=== PATIENT | female | born 1995 ===

== ENCOUNTER 2018-11-19 20:37 | Emergency (ER) | payer MEDICAID ==
[2018-11-19] MEDS ORDERED: Sodium Chloride 0.9% 2.5 ML Syringe FLUSH PRN (21:17)
[2018-11-19] MEDS ORDERED: Ondansetron 4 MG/2 ML SDV IVPUSH ONE (21:17)
[2018-11-19] MEDS ORDERED: Sodium Chloride 0.9% 1,000 ML IV ONE ×2 (21:17→23:08)
[2018-11-19] MEDS ORDERED: Sodium Chloride 0.9% 10 ML Syringe FLUSH PRN (21:17)
--- NOTE | 2018-11-19 21:26 | EDM.PDOC ---
ED HPI GENERAL MEDICAL PROBLEM - General Chief Complaint: General Stated Complaint: HEADACHE Time Seen by Provider: 11/19/18 21:04 - History of Present Illness INITIAL COMMENTS - FREE TEXT/NARRATIVE: HISTORY AND PHYSICAL: History of present illness: The patient is a 23-year-old female who is 35 weeks and is following with [facility] and is presenting with a left-sided headache that started today. 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 The patient has transferred her infectious disease and neurosurgery care to [facility] and is following with a physician there and she is on prophylactic Keflex. The patient says that since her surgery in May she has had headaches that are more diffuse and frontal in location and she normally takes Tylenol and it alleviates her headaches. She said that today her headache started more on the left side and it seemed to be different in character and location and she was noticing some ringing in her ears tingling to her extremities and a weird smell that she is sensing and she is concerned about recurrence of her actions. She's had no fevers or chills no neck pain or stiffness no back pain no chest pain or upper respiratory symptoms but she has had nausea without vomiting. She says that from a standpoint she is not having any abdominal pain or cramping no vaginal bleeding and no urinary symptoms. She says that the baby has not been moving as much as usual. She tells us that she did contact her ID MD , Dr Fitzgerald, and that physician requested that she come here to the ED. The patient says that she is mostly been following with infectious disease and that the neurosurgeon wants her to continue with that provider in till her care is complete and she is cleared and then neurosurgery would reassume care. Review of systems: As per history of present illness and below otherwise all systems reviewed and negative. Past medical history: As per history of present illness and as reviewed below otherwise noncontributory. Surgical history: As per history of present illness and as reviewed below otherwise noncontributory. Social history: No reported history of drug or alcohol abuse. Family history: As per history of present illness and as reviewed below otherwise noncontributory. Physical exam: General: Well-developed well-nourished nontoxic female who ambulated into the ED without distress and vital signs are noted by me. She moves easily without issue and is interactive and cooperative on exam HEENT: Atraumatic, normocephalic, pupils reactive, negative for conjunctival pallor or scleral icterus, mucous membranes moist, throat clear, neck supple, nontender, trachea midline. There is a well-healed scar at the left temporoparietal area without tenderness defects or fluctuance and I cannot reproduce pain when I palpate the left side of her head. There is no erythema there or new soft tissue skin breakage and there is no swelling appreciated. Air is no specific tenderness when I palpate the old scar. There is no cervical adenopathy or nuchal rigidity. TMs are normal bilaterally Lungs: Clear to auscultation, breath sounds equal bilaterally, chest nontender. Heart: S1S2, regular, rate and rhythm no overt murmurs Abdomen: Soft, gravid nontender bowel sounds are hypoactive Negative for costovertebral tenderness. Pelvis: Stable nontender. Genitourinary: Deferred. Rectal: Deferred. Extremities: Atraumatic, negative for cords or calf pain. Neurovascular unremarkable. No pedal edema Neuro: Awake, alert, oriented. Cranial nerves II through XII unremarkable. Cerebellum unremarkable. Motor and sensory unremarkable throughout. Exam nonfocal. Diagnostics: CT scan of the head CBC CMP INR lactic acid UA with reflex, urine culture sedimentation rate L&D to monitor and evaluate the baby with NST Therapeutics: IV fluids Zofran Patient took Tylenol prior to coming here at approximately 3 PM Frankford 2135: This was discussed with Dr. Merino as far as pain management and she said that Toradol would not be indicated due to the third trimester state and Frankford would be acceptable. I discussed this with the patient and she is agreeable with taking a Frankford as her last Tylenol dose was over 6 hours ago. 2153: NST has been performed by labor and delivery and is reactive and they will connect with OB Dr Merino. 2304: This case was discussed with the infectious disease doctor at [place] [facility], Dr. White, was account classification clerk for this patient's primary ID doctor Dr. Zhao. He says that he is not concerned from anything that I have told him and would treat her headache symptomatically. The patient's saying to me that her headache is now at 2/10 after the Frankford. She is currently receiving IV fluids for the ketones in her urine. She has asked me what her sedimentation rate was and that was not initially ordered nor did the covering doctor Dr. White ask for that value. The patient is concerned because her physician does follow that and she would like it to be added on which I will do. She says her last number was 34. I will perform this lab tests and if it is more elevated than her usual number I will recontact Dr. White. Both the patient and at bedside as well as the provider in [facility] are aware that we cannot perform an MRI here. The provider at [facility] is aware that she is on Keflex 500 3 times a day. A urine culture has been ordered as there are some white cells and few bacteria in the urine sample. There is epithelial cells in the sample so this may just be contaminant so I will not add a second antibiotic specifically for the urine until the culture result has been obtained as the patient is on Keflex The patient's sedimentation rate tonight is 34 and she says that is consistent with her last sedimentation rate and she is not concerned. I have again strictly advised her that if there is any change in her clinical condition she will likely need an MRI which we cannot perform here and she is welcome to return here but she would likely need to go where MRI capability is available. I also told her that Dr. Myers that he will be available for phone conversation and consultation and she needs Impression: Headache, history of craniotomy in May for infection Third trimester , 35 weeks, stable Definitive disposition and diagnosis as appropriate pending reevaluation and review of above. 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 ED EXAM, GENERAL - Physical Exam Exam: See Below (See dictation) Course - Vital Signs Last Recorded V/S: Last Vital Signs Temp 36.2 C 11/19/18 21:06 Pulse 84 11/19/18 23:00 Resp 18 11/19/18 23:00 BP 102/53 L 11/19/18 23:00 Pulse Ox 97 11/19/18 23:00 - Orders/Labs/Meds Orders: Active Orders 24 hr Category Date Time Status NST [ Non Stress Test] [RC] PER UNIT ROUTINE Care 11/19/18 21:26 Active CULTURE URINE [RM] Stat Lab 11/19/18 21:24 Received Sodium Chloride 0.9% [Normal Saline] 1,000 ml Med 11/19/18 23:08 Active IV .Bolus Sodium Chloride 0.9% [Saline Flush] Med 11/19/18 21:17 Active 10 ml FLUSH ASDIRECTED PRN Sodium Chloride 0.9% [Saline Flush] Med 11/19/18 21:17 Active 2.5 ml FLUSH ASDIRECTED PRN Saline Lock Insert [OM.PC] Stat Oth 11/19/18 21:16 Ordered Medication Orders Sodium Chloride (Normal Saline) 1,000 mls @ 999 mls/hr IV .Bolus ONE Stop: 11/20/18 00:08 Last Admin: 11/19/18 23:10 Dose: 999 mls/hr Sodium Chloride (Saline Flush) 10 ml FLUSH ASDIRECTED PRN PRN Reason: Keep Vein Open Sodium Chloride (Saline Flush) 2.5 ml FLUSH ASDIRECTED PRN PRN Reason: Keep Vein Open Labs: Laboratory Tests 11/19/18 11/19/18 11/19/18 Range/Units 21:20 21:20 21:20 WBC 12.69 H (4.0-11.0) K/uL RBC 4.61 (4.30-5.90) M/uL Hgb 12.5 (12.0-16.0) g/dL Hct 36.6 (36.0-46.0) % MCV 79.4 L (80.0-98.0) fL MCH 27.1 (27.0-32.0) pg MCHC 34.2 (31.0-37.0) g/dL RDW Std Deviation 40.4 (28.0-62.0) fl RDW Coeff of Blue 14 (11.0-15.0) % Plt Count 257 (150-400) K/uL MPV 9.60 (7.40-12.00) fL Neut % (Auto) 79.5 (48.0-80.0) % Lymph % (Auto) 14.9 L (16.0-40.0) % Kimball % (Auto) 5.2 (0.0-15.0) % Eos % (Auto) 0.2 (0.0-7.0) % Baso % (Auto) 0.2 (0.0-1.5) % Neut # (Auto) 10.1 H (1.4-5.7) K/uL Lymph # (Auto) 1.9 (0.6-2.4) K/uL Kimball # (Auto) 0.7 (0.0-0.8) K/uL Eos # (Auto) 0.0 (0.0-0.7) K/uL Baso # (Auto) 0.0 (0.0-0.1) K/uL Nucleated RBC % 0.0 /100WBC Nucleated RBCs # 0 K/uL ESR (0-19) mm/hr INR 0.92 Lactate (0.20-2.00) mmol/L Sodium 137 (136-145) mmol/L Potassium 3.7 (3.5-5.1) mmol/L Chloride 105 (98-107) mmol/L Carbon Dioxide 18.0 L (21.0-32.0) mmol/L BUN 10 (7.0-18.0) mg/dL Creatinine 0.9 (0.6-1.0) mg/dL Est Cr Clr Drug Dosing 79.04 mL/min Estimated GFR (MDRD) > 60.0 ml/min Glucose 91 (74-106) mg/dL Calcium 9.1 (8.5-10.1) mg/dL Total Bilirubin 0.8 (0.2-1.0) mg/dL AST 11 L (15-37) IU/L ALT 20 (14-63) IU/L Alkaline Phosphatase 130 H (46-116) U/L Total Protein 6.6 (6.4-8.2) g/dL Albumin 2.7 L (3.4-5.0) g/dL Globulin 3.9 (2.6-4.0) g/dL Albumin/Globulin Ratio 0.7 L (0.9-1.6) Urine Color Urine Appearance Urine pH (5.0-8.0) Ur Specific [place] (1.001-1.035) Urine Protein (NEGATIVE) mg/dL Urine Glucose (UA) (NEGATIVE) mg/dL Urine Ketones (NEGATIVE) mg/dL Urine Occult Blood (NEGATIVE) Urine Nitrite (NEGATIVE) Urine Bilirubin (NEGATIVE) Urine Urobilinogen (<2.0) EU/dL Ur Leukocyte Esterase (NEGATIVE) Urine RBC (0-2/HPF) Urine WBC (0-5/HPF) Ur Epithelial Cells (NONE-FEW) Urine Bacteria (NEGATIVE) 11/19/18 11/19/18 11/19/18 Range/Units 21:20 21:20 21:24 WBC (4.0-11.0) K/uL RBC (4.30-5.90) M/uL Hgb (12.0-16.0) g/dL Hct (36.0-46.0) % MCV (80.0-98.0) fL MCH (27.0-32.0) pg MCHC (31.0-37.0) g/dL RDW Std Deviation (28.0-62.0) fl RDW Coeff of Blue (11.0-15.0) % Plt Count (150-400) K/uL MPV (7.40-12.00) fL Neut % (Auto) (48.0-80.0) % Lymph % (Auto) (16.0-40.0) % Kimball % (Auto) (0.0-15.0) % Eos % (Auto) (0.0-7.0) % Baso % (Auto) (0.0-1.5) % Neut # (Auto) (1.4-5.7) K/uL Lymph # (Auto) (0.6-2.4) K/uL Kimball # (Auto) (0.0-0.8) K/uL Eos # (Auto) (0.0-0.7) K/uL Baso # (Auto) (0.0-0.1) K/uL Nucleated RBC % /100WBC Nucleated RBCs # K/uL ESR 34 H (0-19) mm/hr INR Lactate 0.8 (0.20-2.00) mmol/L Sodium (136-145) mmol/L Potassium (3.5-5.1) mmol/L Chloride (98-107) mmol/L Carbon Dioxide (21.0-32.0) mmol/L BUN (7.0-18.0) mg/dL Creatinine (0.6-1.0) mg/dL Est Cr Clr Drug Dosing mL/min Estimated GFR (MDRD) ml/min Glucose (74-106) mg/dL Calcium (8.5-10.1) mg/dL Total Bilirubin (0.2-1.0) mg/dL AST (15-37) IU/L ALT (14-63) IU/L Alkaline Phosphatase (46-116) U/L Total Protein (6.4-8.2) g/dL Albumin (3.4-5.0) g/dL Globulin (2.6-4.0) g/dL Albumin/Globulin Ratio (0.9-1.6) Urine Color YELLOW Urine Appearance SLT CLOUDY Urine pH 6.0 (5.0-8.0) Ur Specific [place] 1.025 (1.001-1.035) Urine Protein NEGATIVE (NEGATIVE) mg/dL Urine Glucose (UA) NEGATIVE (NEGATIVE) mg/dL Urine Ketones >=80 (NEGATIVE) mg/dL Urine Occult Blood NEGATIVE (NEGATIVE) Urine Nitrite NEGATIVE (NEGATIVE) Urine Bilirubin NEGATIVE (NEGATIVE) Urine Urobilinogen 0.2 (<2.0) EU/dL Ur Leukocyte Esterase SMALL H (NEGATIVE) Urine RBC 1-2 (0-2/HPF) Urine WBC 4-6 (0-5/HPF) Ur Epithelial Cells MODERATE (NONE-FEW) Urine Bacteria FEW (NEGATIVE) Meds: Medications Generic Name Dose Route Start Last Admin Trade Name Freq PRN Reason Stop Dose Admin Sodium Chloride 1,000 mls @ 999 mls/hr 11/19/18 23:08 11/19/18 23:10 Normal Saline IV 11/20/18 00:08 999 mls/hr .Bolus ONE Administration Sodium Chloride 10 ml 11/19/18 21:17 Saline Flush FLUSH ASDIRECTED PRN Keep Vein Open Sodium Chloride 2.5 ml 11/19/18 21:17 Saline Flush FLUSH ASDIRECTED PRN Keep Vein Open Discontinued Medications Generic Name Dose Route Start Last Admin Trade Name Fredorothy PRN Reason Stop Dose Admin Hydrocodone Bitart/Acetaminophen 1 tab 11/19/18 21:41 11/19/18 21:46 Frankford 325-5 Mg PO 11/19/18 21:42 1 tab ONETIME ONE Administration Sodium Chloride 1,000 mls @ 999 mls/hr 11/19/18 21:17 11/19/18 21:33 Normal Saline IV 11/19/18 22:17 999 mls/hr STAT ONE Administration Ondansetron HCl 4 mg 11/19/18 21:17 11/19/18 21:33 Zofran IVPUSH 11/19/18 21:18 4 mg ONETIME ONE Administration Pantoprazole Sodium 80 mg 11/19/18 23:55 Protonix Iv IVPUSH 11/19/18 23:56 .BOLUS ONE Departure - Departure Time of Disposition: 00:01 Disposition: Home, Self-Care 01 Condition: Good Clinical Impression: Headache Qualifiers: Headache type: unspecified Headache chronicity pattern: unspecified pattern Intractability: not intractable Qualified Code(s): R51 - Headache - Discharge Information Referrals: Corey Chavez MD [Primary Care Provider] - Forms: ED Department Discharge Additional Instructions: The following information is given to patients seen in the emergency department who are being discharged to home. This information is to outline your options for follow-up care. We provide all patients seen in our emergency department with a follow-up referral. The need for follow-up, as well as the timing and circumstances, are variable depending upon the specifics of your emergency department visit. If you don't have a primary care physician on staff, we will provide you with a referral. We always advise you to contact your personal physician following an emergency department visit to inform them of the circumstance of the visit and for follow-up with them and/or the need for any referrals to a consulting specialist. The emergency department will also refer you to a specialist when appropriate. This referral assures that you have the opportunity for followup care with a specialist. All of these measure are taken in an effort to provide you with optimal care, which includes your followup. Under all circumstances we always encourage you to contact your private physician who remains a resource for coordinating your care. When calling for followup care, please make the office aware that this follow-up is from your recent emergency room visit. If for any reason you are refused follow-up, please contact the [facility] emergency department at and ask to speak to the emergency department charge nurse. [facility] Primary care- Internal Medicine and Family [facility] [address] [place] [id number] [facility] [address] [place] [id number] Push hydration and continue to eat multiple small meals to keep her nutrition up. Please use [id number] Tylenol for pain management or the Frankford you have been prescribed as needed. Only take the Frankford when you're at home. These connect with your provider in [facility] if your symptoms evolve or change for further care management and return to ER as needed and as discussed. Continue with your care at [facility] - My Orders Last 24 Hours: My Active Orders 11/19/18 21:16 Saline Lock Insert [OM.PC] Stat 11/19/18 21:17 Sodium Chloride 0.9% [Saline Flush] 10 ml FLUSH ASDIRECTED PRN Sodium Chloride 0.9% [Saline Flush] 2.5 ml FLUSH ASDIRECTED PRN 11/19/18 21:24 CULTURE URINE [RM] Stat 11/19/18 21:26 NST [ Non Stress Test] [RC] PER UNIT ROUTINE 11/19/18 23:08 Sodium Chloride 0.9% [Normal Saline] 1,000 ml IV .Bolus - Assessment/Plan Last 24 Hours: My Active Orders 11/19/18 21:16 Saline Lock Insert [OM.PC] Stat 11/19/18 21:17 Sodium Chloride 0.9% [Saline Flush] 10 ml FLUSH ASDIRECTED PRN Sodium Chloride 0.9% [Saline Flush] 2.5 ml FLUSH ASDIRECTED PRN 11/19/18 21:24 CULTURE URINE [RM] Stat 11/19/18 21:26 NST [ Non Stress Test] [RC] PER UNIT ROUTINE 11/19/18 23:08 Sodium Chloride 0.9% [Normal Saline] 1,000 ml IV .Bolus
[2018-11-19] MEDS ORDERED: Acetaminophen/HYDROcodone 325-5 MG Tab PO ONE (21:41)
[2018-11-19 21:58] LABS: BLOOD UREA NITROGEN,BUN 10 mg/dL (7.0-18.0); CHLORIDE,CL 105 mmol/L (98-107); GLUCOSE RANDOM 91 mg/dL (74-106); POTASSIUM,K 3.7 mmol/L (3.5-5.1); SODIUM,NA 137 mmol/L (136-145)
--- NOTE | 2018-11-19 22:56 | CT ---
CT HEAD DATE: 11/19/2018 CLINICAL HISTORY: Patient with recent cerebral infection, status post surgical drainage, now with worsening symptoms. TECHNIQUE: Standard CT scanning of the head was performed. COMPARISON: None. FINDINGS: There is a left temporal amanda hole. There is non-specific subgaleal soft tissue thickening in the left temporal region. There is a small area of encephalomalacia in the left temporal lobe, consistent with sequelae of the prior infection. There is no intracranial hemorrhage. There is no territorial infarction. The size of the ventricular system is normal for age. There is no mass effect or midline shift. The orbits are unremarkable. The paranasal sinuses are unremarkable. The mastoid air cells are unremarkable. IMPRESSION: 1. Left temporal amanda hole with associated non-specific subgaleal soft tissue thickening in the left temporal region. These findings likely represent expected post-operative changes, although clinical correlation for scalp cellulitis is recommended. 2. Small area of encephalomalacia in the left temporal lobe is consistent with sequelae of the prior infection. No specific CT evidence of recurrent infection. However, an MRI examination of the brain with and without contrast would be more sensitive and specific. 3. No intracranial hemorrhage or territorial infarction. Please note that all CT scans at this facility use dose modulation, iterative reconstruction, and/or weight-based dosing when appropriate to reduce radiation dose to as low as reasonably achievable. Dictated by: Suly Mccormack MD @ 11/19/2018 22:55:19 (Electronically Signed)
[2018-11-19] MEDS ORDERED: Sodium Chloride 0.9% 250 ML IV SCH (23:15)
[2018-11-19] MEDS ORDERED: Pantoprazole 40 MG Vial IVPUSH ONE (23:55)
[2018-11-20] MEDS ORDERED: Sodium Chloride 0.9% 20 ML ONE (00:13)
[2018-11-20] MEDS ORDERED: Sodium Chloride 0.9% 20 ML SDV FLUSH ONE (00:16)
== END 2018-11-20 00:26 | disposition home or self-care (01) ==
LOC: MW.ED 20:37
DX: O99.89 Other specified diseases and conditions complicating pregnancy, childbirth and the puerperium (principal); R51 Headache; Z3A.35 35 weeks gestation of pregnancy
CPT/HCPCS: 36415; 70450; 80053; 81001; 83605; 85025; 85610; 85652; 87086; 96361; 96374; 96375; 99284; A9270; C9113; J2405; J7040

== ENCOUNTER 2018-12-14 05:20 | Inpatient (IN) | payer MEDICAID ==
[2018-12-14] MEDS ORDERED: Sodium Chloride 0.9% 2.5 ML Syringe FLUSH PRN (05:31)
[2018-12-14] MEDS ORDERED: Citric Acid/Sodium Citrate Solution 30 ML Cup PO ONE (05:31)
[2018-12-14] MEDS ORDERED: Sodium Chloride 0.9% 10 ML Syringe FLUSH PRN (05:31)
[2018-12-14] MEDS ORDERED: Sodium Chloride 0.9% 10 ML SDV IV PRN (05:31)
[2018-12-14] MEDS ORDERED: Oxytocin/0.9 % Sodium Chloride 30 UNIT/500 ML BAG IV SCH (05:45)
[2018-12-14] MEDS: Lactated Ringers 1,000 ML IV SCH ×4 (05:56→17:58)
[2018-12-14] MEDS ORDERED: ceFAZolin 2 GM in Premix Bag 1 BAG IV ONE (07:30)
[2018-12-14] MEDS ORDERED: Morphine PF 10 MG/10 ML SDV ONE (07:32)
[2018-12-14] MEDS ORDERED: Ondansetron 4 MG/2 ML SDV ONE (07:32)
[2018-12-14] MEDS ORDERED: Oxytocin 10 Units/1 ML SDV ONE (07:40)
[2018-12-14] MEDS ORDERED: Octyl 2-Cyanoacrylate 1 Tube ONE (07:43)
[2018-12-14] MEDS ORDERED: fentaNYL 100 MCG/2 ML SDV IVPUSH PRN (07:47)
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
[2018-12-14] MEDS ORDERED: Nalbuphine 10 MG/1 ML Vial IVPUSH PRN (07:48)
[2018-12-14] MEDS ORDERED: Acetaminophen/oxyCODONE 325-5 MG Tab PO PRN (07:48)
[2018-12-14] MEDS: Ondansetron 4 MG/2 ML SDV IVPUSH PRN ×3 (08:00→20:51)
[2018-12-14] MEDS ORDERED: diphenhydrAMINE 50 MG/ML SDV ONE (08:37)
[2018-12-14] MEDS ORDERED: Dexamethasone 4 MG/ML 5 ML MDV ONE (08:37)
[2018-12-14] MEDS ORDERED: Phenylephrine 1% 10 MG/ML SDV ONE (08:37)
[2018-12-14] MEDS ORDERED: Lanolin 100% Cream 7 GM Tube TOP PRN (08:56)
[2018-12-14] MEDS ORDERED: Aluminum Hydroxide/Magnesium Hydroxide/Simethicone Susp 30 ML Cup PO PRN (08:56)
[2018-12-14] MEDS ORDERED: diphenhydrAMINE 50 MG/ML SDV IVPUSH PRN (08:56)
[2018-12-14] MEDS ORDERED: Bisacodyl 10 MG Supp RECTAL PRN (08:56)
--- NOTE | 2018-12-14 09:09 | PCM.OPNOTE ---
- General Post-Op/Procedure Note Date of Surgery/Procedure: 12/14/18 Operative Procedure(s): Repeat LTCS Findings: Viable female APGARs 9, 9 weight 3070 gm. Intact placenta with 3V cord Pre Op Diagnosis: 39 week IUP. Previous c section, desired repeat Post-Op Diagnosis: Same Anesthesia Technique: Spinal Primary Surgeon: Patt Ruff Fluid Replacement, Intraop: 1,600 EBL in mLs: 500 Complications: none known Condition: Stable Free Text/Narrative:: Dictation [id number]
[2018-12-14] MEDS: Ketorolac 30 MG/ML SDV IVPUSH SCH ×3 (09:25→20:43)
--- NOTE | 2018-12-14 11:28 | OR ---
SURGEON: Patt Ruff M.D. DATE OF PROCEDURE: 12/14/2018 PREOPERATIVE DIAGNOSES: 1. 39 weeks' intrauterine . 2. Previous section, desires repeat. POSTOPERATIVE DIAGNOSES: 1. 39 weeks' intrauterine . 2. Previous section, desires repeat. PROCEDURE: Repeat low-transverse section. PRIMARY SURGEON: Patt Ruff MD. ANESTHESIA: Spinal. QUALITY CONTROL MICROBIOLOGIST: Romeo Duran. ESTIMATED BLOOD LOSS: 500 mL. FLUIDS: 1600 mL of crystalloid. COMPLICATIONS: None known. FINDINGS: Viable female. scores 9 at one minute and 9 at five minutes. Weight of 3070 g. Delivery, intact placenta and three-vessel cord. DISPOSITION: The patient to PACU, infant to nursery, stable. PROCEDURE DETAILS: Megha is a 23-year-old G2, P0, at 39 weeks' gestational age, who presents today for scheduled repeat delivery. 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 She underwent craniotomy with drainage and has been seeing Infectious Disease and Neurosurgery during the entire course of her . She has remained on initially PICC line antibiotics followed by oral antibiotics. She has remained stable on her imaging studies, has progressively improved. Anesthesia has been in contact with Neurosurgery, and they feel that at this juncture that she is reasonable candidate for a regional anesthesia. Risks of delivery have been discussed with her. Proper consent obtained. The patient was taken to the operating room where she underwent spinal anesthetic, was placed in dorsal supine position with leftward tilt. SCDs to lower extremities. Basurto to gravity, was prepped and draped in the usual sterile fashion. A time-out was performed. She received Ancef 2 g prophylactically. Anesthesia was tested and found to be adequate after the patient was prepped and draped in the usual sterile fashion. Previous Pfannenstiel scar was now excised. Subcutaneous tissue was incised down to the level of the rectus fascia, which was incised in midline, lateralized on either side sharply and bluntly. Superior aspect of fascia was dissected upward, dissected both sharply and bluntly from underlying muscle. Similar aspect was performed with the inferior aspect of the fascia. Rectus muscle in midline, entered sharply, and the peritoneum was also entered sharply. Rectus muscle and peritoneum were now lateralized bluntly. Uterine position and position palpated. Self-retaining retractor was gently placed. A uterovesical reflection was visualized. Bladder flap was created sharply and bluntly. Bladder was mobilized away from the lower uterine segment. Low transverse hysterotomy was now performed. Uterine cavity was entered with blunt-ended scalpel. Hysterotomy was lateralized bluntly. Amniotomy was performed. Clear fluid was returned. The infant's head was flexed. The infant's head was delivered with fundal pressure being applied, followed by anterior shoulder and posterior shoulder and remaining body without difficulty. The infant's oropharynx and nares were bulb suctioned. The infant was vigorous and crying. After a delay, cord was clamped x2 and cut. was handed off to attending nursing staff. Cord arterial, cord venous, and cord blood sampling was obtained. The placenta was now delivered. Uterine cavity was cleared of all clot and debris. The hysterotomy was repaired using 0 Vicryl in continuous running locked fashion followed by a re-imbricating layer. Area of oozing in the left lateral side was replicated with [id number] suture. Hemostasis thereafter evident. Posterior aspect of the uterus inspected, no defects or hematomas found be forming. Region was well irrigated, suction dried. Uterus returned to the abdominal cavity. Colonic gutters were cleared of all clot and debris, well irrigated and suction dried. Hysterotomy once again inspected and found to be hemostatic other than a few areas of serosal oozing which were cauterized. Self-retaining retractor now gently placed. Bladder blade was placed. Hysterotomy once again inspected and found to be hemostatic. Rectus muscle and peritoneum were now reapproximated using 0 Vicryl with inverted mattress suture technique. Anterior aspect of the muscle and posterior aspect of the fascia were closely inspected, any areas of oozing were cauterized. Rectus fascia was reapproximated using 0 Vicryl, beginning laterally on each side and meeting in the midline in continuous running fashion with 0 Vicryl. Subcutaneous tissue was now copiously irrigated, any areas of oozing were cauterized. Skin edges were now reapproximated using 3-0 Vicryl on a Juan R needle in subcuticular fashion followed by half-inch Steri-Strips and Mastisol. Uterus remained firm. Fundal pressure was applied. Hemostasis appeared evident. Sponge, instrument, and needle count was correct x2. The patient tolerated the procedure well overall. She will go to PACU in stable condition, infant to nursery. We will continue IV prophylactic antibiotics for 24 hours. SILVINO NYE /[id number]
[2018-12-14] MEDS: Simethicone 80 MG Tab.Chew PO SCH ×3 (12:00→23:47)
[2018-12-14] MEDS: Docusate Sodium 100 MG Cap PO SCH ×2 (12:25→20:47)
--- NOTE | 2018-12-14 12:41 | PCM.POSTAN ---
POST ANESTHESIA ASSESSMENT - MENTAL STATUS Mental Status: Alert, Oriented - VITAL SIGNS Vital Signs: Last Vital Signs Temp 98.0 F 12/14/18 11:45 Pulse 74 12/14/18 11:45 Resp 14 12/14/18 11:45 BP 100/50 L 12/14/18 11:45 Pulse Ox 96 12/14/18 09:44 - RESPIRATORY Respiratory Status: Respiratory Rate WNL, Airway Patent, O2 Saturation Stable - CARDIOVASCULAR CV Status: Pulse Rate WNL, Blood Pressure Stable - GASTROINTESTINAL GI Status: No Symptoms - POST OP HYDRATION Hydration Status: Adequate & Stable
[2018-12-14] MEDS: ceFAZolin 1 GM in Premix Bag 1 BAG IV SCH ×2 (15:45→23:42)
[2018-12-15] MEDS: Ketorolac 30 MG/ML SDV IVPUSH SCH ×2 (03:02→08:46)
[2018-12-15] MEDS: Simethicone 80 MG Tab.Chew PO SCH ×3 (05:59→20:01)
[2018-12-15] MEDS: ceFAZolin 1 GM in Premix Bag 1 BAG IV SCH (08:06)
--- NOTE | 2018-12-15 08:41 | PCM.PNPP ---
- General Info Date of Service: 12/15/18 Functional Status: Reports: Pain Controlled, Tolerating Diet, Ambulating, Urinating - Review of Systems General: Reports: Fatigue. Denies: Fever, Weakness Pulmonary: Denies: Shortness of Breath Cardiovascular: Denies: Chest Pain, Palpitations, Lightheadedness Gastrointestinal: Denies: Abdominal Pain, Nausea, Vomiting Genitourinary: Denies: Flank Pain Musculoskeletal: Reports: No Symptoms Skin: Reports: No Symptoms Neurological: Denies: Confusion, Dizziness, Headache Psychiatric: Reports: No Symptoms - General Info Date of Service: 12/15/18 - Patient Data Vital Signs - Most Recent: Last Vital Signs Temp 36.4 C 12/15/18 04:13 Pulse 84 12/15/18 04:13 Resp 16 12/15/18 07:00 BP 112/58 L 12/15/18 04:13 Pulse Ox 96 12/15/18 07:00 Weight - Most Recent: 109.044 kg I&O - Last 24 Hours: Intake & Output 12/14/18 12/15/18 12/15/18 22:59 06:59 14:59 Intake Total 730 1050 Output Total 400 1700 Balance 330 -650 Lab Results - Last 24 Hours: Laboratory Results - last 24 hr 12/14/18 12/15/18 Range/Units 08:18 05:36 WBC 11.10 H (4.0-11.0) K/uL RBC 3.44 L (4.30-5.90) M/uL Hgb 9.1 L (12.0-16.0) g/dL Hct 27.6 L (36.0-46.0) % MCV 80.2 (80.0-98.0) fL MCH 26.5 L (27.0-32.0) pg MCHC 33.0 (31.0-37.0) g/dL RDW Std Deviation 43.1 (28.0-62.0) fl RDW Coeff of Blue 15 (11.0-15.0) % Plt Count 228 (150-400) K/uL MPV 9.50 (7.40-12.00) fL Nucleated RBC % 0.0 /100WBC Nucleated RBCs # 0 K/uL Cord ABG pH 7.312 (7.18-7.38) Cord ABG Base Excess -5 (-10--2) Cord VBG pH 7.302 (7.25-7.45) Cord VBG Base Excess -5 (-10--2) Med Orders - Current: Current Medications Al Hydroxide/Mg Hydroxide (Mag-Al Plus) 30 ml PO Q8H PRN PRN Reason: Heartburn Bisacodyl (Dulcolax) 10 mg RECTAL ONETIME PRN PRN Reason: Constipation Diphenhydramine HCl (Benadryl) 25 mg IVPUSH Q6H PRN PRN Reason: Itching or Nausea Last Admin: 12/14/18 22:40 Dose: 25 mg Docusate Sodium (Colace) 100 mg PO BID [facility] Last Admin: 12/14/18 20:47 Dose: 100 mg Emollient Ointment (Lansinoh Hpa) 0 gm TOP ASDIRECTED PRN PRN Reason: Sore Nipples Lactated Ringer's (Ringers, Lactated) 1,000 mls @ 500 mls/hr IV BOLUS [facility] Last Admin: 12/14/18 07:16 Dose: 500 mls/hr Oxytocin/Sodium Chloride (Oxytocin 30 Unit/500 Ml-Ns) 30 unit in 500 mls @ 250 mls/hr IV TITRATE [facility] Lactated Ringer's (Ringers, Lactated) 1,000 mls @ 125 mls/hr IV ASDIRECTED [facility] Last Admin: 12/14/18 17:58 Dose: 125 mls/hr Ibuprofen (Motrin) 800 mg PO Q8H PRN PRN Reason: mild pain or fever Ketorolac Tromethamine (Toradol) 30 mg IVPUSH Q6H [facility] Stop: 12/15/18 09:01 Last Admin: 12/15/18 03:02 Dose: 30 mg Ondansetron HCl (Zofran) 4 mg IVPUSH Q4H PRN PRN Reason: Nausea/Vomiting Last Admin: 12/14/18 20:51 Dose: 4 mg Oxycodone/Acetaminophen (Percocet 325-5 Mg) 1 tab PO ONETIME PRN PRN Reason: Pain (moderate 4-6) Oxycodone/Acetaminophen (Percocet 325-5 Mg) 1 tab PO Q4H PRN PRN Reason: Pain (moderate 4-6) Oxycodone/Acetaminophen (Percocet 325-5 Mg) 2 tab PO Q4H PRN PRN Reason: Pain (moderate 4-6) Simethicone (Simethicone) 160 mg PO QID [facility] Last Admin: 12/15/18 05:59 Dose: 160 mg Sodium Chloride (Saline Flush) 10 ml FLUSH ASDIRECTED PRN PRN Reason: Keep Vein Open Sodium Chloride (Saline Flush) 2.5 ml FLUSH ASDIRECTED PRN PRN Reason: Keep Vein Open Sodium Chloride (Normal Saline) 10 ml IV ASDIRECTED PRN PRN Reason: IV Use Discontinued Medications Citric Acid/Sodium Citrate (Bicitra Solution) 30 ml PO ONETIME ONE Stop: 12/14/18 05:32 Last Admin: 12/14/18 07:40 Dose: 30 ml Dexamethasone (Dexamethasone) Confirm Administered Dose 20 mg .ROUTE .STK-MED ONE Stop: 12/14/18 08:38 Diphenhydramine HCl (Benadryl) Confirm Administered Dose 50 mg .ROUTE .STK-MED ONE Stop: 12/14/18 08:38 Fentanyl (Sublimaze) 50 mcg IVPUSH Q5M PRN PRN Reason: Pain (severe 7-10) Stop: 12/15/18 07:48 Cefazolin Sodium/Dextrose 2 gm (/ Premix) 50 mls @ 100 mls/hr IV ONETIME ONE Stop: 12/14/18 07:59 Last Admin: 12/14/18 12:25 Dose: Not Given Cefazolin Sodium/Dextrose 1 gm (/ Premix) 50 mls @ 100 mls/hr IV Q8H [facility] Stop: 12/15/18 08:29 Last Admin: 12/15/18 08:06 Dose: 100 mls/hr Morphine Sulfate (Duramorph Pf) Confirm Administered Dose 10 mg .ROUTE .STK-MED ONE Stop: 12/14/18 07:33 Nalbuphine HCl (Nubain) 2.5 mg IVPUSH Q3H PRN PRN Reason: Pruritis Stop: 12/15/18 07:48 Last Admin: 12/14/18 10:32 Dose: 2.5 mg Octyl Cyanoacrylate (Dermabond Advance) Confirm Administered Dose 1 applic .ROUTE .STK-MED ONE Stop: 12/14/18 07:44 Last Admin: 12/14/18 12:25 Dose: Not Given Ondansetron HCl (Zofran) Confirm Administered Dose 4 mg .ROUTE .STK-MED ONE Stop: 12/14/18 07:33 Oxytocin (Pitocin) Confirm Administered Dose 30 unit .ROUTE .STK-MED ONE Stop: 12/14/18 07:41 Phenylephrine HCl (Ja-Synephrine) Confirm Administered Dose 20 mg .ROUTE .STK- MED ONE Stop: 12/14/18 08:38 - Infant Interaction Support Person: Mother - Recovery Exam Fundal Tone: Firm Fundal Level: At Umbilicus Fundal Placement: Midline Lochia Amount: Scant, Small Lochia Color: Rubra/Red Perineum Description: Intact, Minimal Bruising/Swelling Episiotomy/Laceration: Approximated Bladder Status: Indwelling Catheter in Place Urinary Elimination: Indwelling Catheter - Exam General: Alert, Oriented Lungs: Normal Respiratory Effort Cardiovascular: Regular Rate, Regular Rhythm GI/Abdominal Exam: Normal Bowel Sounds, Soft Extremities: Pedal Edema (1+). No: Ede's Sign Skin: Warm, Dry, Intact Wound/Incisions: Healing Well, No Drainage. No: Erythema Neurological: No New Focal Deficit Psy/Mental Status: Alert, Normal Affect, Normal Mood - Problem List & Annotations (1) Delivery by section SNOMED Code(s): 362925782 Code(s): UOU6582 - Status: Acute Current Visit: Yes - Problem List Review Problem List Initiated/Reviewed/Updated: Yes - My Orders Last 24 Hours: My Active Orders 12/14/18 08:56 Patient Status [ADT] Routine Ambulate [RC] PER UNIT ROUTINE Antiembolic Devices [RC] PER UNIT ROUTINE May Shower [RC] ASDIRECTED RT Incentive Spirometry [RC] Q2HWA Vital Signs [RC] PER UNIT ROUTINE Acetaminophen/oxyCODONE [Percocet 325-5 MG] 1 tab PO Q4H PRN Acetaminophen/oxyCODONE [Percocet 325-5 MG] 2 tab PO Q4H PRN Alum Hydrox/Mag Hydrox/Simeth [Mag-Al Plus] 30 ml PO Q8H PRN Bisacodyl [Dulcolax] 10 mg RECTAL ONETIME PRN Ibuprofen [Motrin] 800 mg PO Q8H PRN Lanolin [Lansinoh HPA] See Dose Instructions TOP ASDIRECTED PRN Ondansetron [Zofran] 4 mg IVPUSH Q4H PRN diphenhydrAMINE [Benadryl] 25 mg IVPUSH Q6H PRN Abdominal Binder [OM.PC] Routine Assess Lochia [WOMSER] Per Unit Routine Assess Uterine Involution [WOMSER] Per Unit Routine Breast Pump [WOMSER] Per Unit Routine Heat Therapy [OM.PC] Routine Ice Therapy [OM.PC] Routine Peripheral IV Discontinue [OM.PC] Routine Sequential Compression Device [OM.PC] Per Unit Routine 12/14/18 09:00 Docusate Sodium [Colace] 100 mg PO BID Ketorolac [Toradol] 30 mg IVPUSH Q6H Lactated Ringers [Ringers, Lactated] 1,000 ml IV ASDIRECTED 12/14/18 12:00 Simethicone 160 mg PO QID 12/14/18 Lunch Regular Diet [DIET] 12/16/18 07:00 Blood Glucose Check, Bedside [RC] ONETIME - Assessment Assessment:: POD 1 status post repeat LTCS - Plan Plan:: Cotinue postoperative cares, ambulate halls today, may shower. She is to transition back to her oral keflex today. Will evaluate fasting glucose in morning.
[2018-12-15] MEDS: Docusate Sodium 100 MG Cap PO SCH ×2 (08:46→20:02)
[2018-12-15] MEDS: Acetaminophen/oxyCODONE 325-5 MG Tab PO PRN ×2 (16:25→20:37)
[2018-12-15] MEDS: Ibuprofen 800 MG Tab PO PRN (16:26)
--- NOTE | 2018-12-15 20:16 | PCM48HPAN ---
Post Anesthesia Note - EVALUATION WITHIN 48HRS OF ANESTHETIC Vital Signs in Normal Range: Yes Patient Participated in Evaluation: Yes Respiratory Function Stable: Yes Airway Patent: Yes Cardiovascular Function Stable: Yes Hydration Status Stable: Yes Pain Control Satisfactory: Yes Nausea and Vomiting Control Satisfactory: Yes Mental Status Recovered: Yes Vital Signs: Last Vital Signs Temp 97.4 F 12/15/18 16:15 Pulse 91 12/15/18 16:15 Resp 16 12/15/18 16:15 BP 119/66 12/15/18 16:15 Pulse Ox 97 12/15/18 16:15
[2018-12-16] MEDS: Simethicone 80 MG Tab.Chew PO SCH ×3 (00:27→18:06)
[2018-12-16] MEDS: Ibuprofen 800 MG Tab PO PRN ×3 (00:27→18:31)
[2018-12-16] MEDS: Acetaminophen/oxyCODONE 325-5 MG Tab PO PRN ×5 (05:53→22:41)
[2018-12-16] MEDS: Docusate Sodium 100 MG Cap PO SCH ×2 (09:10→22:42)
--- NOTE | 2018-12-16 09:12 | PCM.PNPP ---
- General Info Date of Service: 12/16/18 Functional Status: Reports: Pain Controlled, Tolerating Diet, Ambulating, Urinating - Review of Systems General: Denies: Fever, Weakness, Fatigue Pulmonary: Denies: Shortness of Breath Cardiovascular: Denies: Chest Pain, Palpitations, Lightheadedness Gastrointestinal: Reports: Flatus. Denies: Abdominal Pain, Nausea, Vomiting Genitourinary: Denies: Flank Pain Musculoskeletal: Reports: No Symptoms Skin: Reports: No Symptoms Neurological: Reports: No Symptoms Psychiatric: Reports: No Symptoms - General Info Date of Service: 12/16/18 - Patient Data Vital Signs - Most Recent: Last Vital Signs Temp 36.3 C 12/16/18 08:25 Pulse 70 12/16/18 08:25 Resp 16 12/16/18 08:25 BP 108/65 12/16/18 08:25 Pulse Ox 99 12/16/18 08:25 Weight - Most Recent: 109.044 kg Med Orders - Current: Current Medications Al Hydroxide/Mg Hydroxide (Mag-Al Plus) 30 ml PO Q8H PRN PRN Reason: Heartburn Bisacodyl (Dulcolax) 10 mg RECTAL ONETIME PRN PRN Reason: Constipation Diphenhydramine HCl (Benadryl) 25 mg IVPUSH Q6H PRN PRN Reason: Itching or Nausea Last Admin: 12/14/18 22:40 Dose: 25 mg Docusate Sodium (Colace) 100 mg PO BID [facility] Last Admin: 12/15/18 20:02 Dose: 100 mg Emollient Ointment (Lansinoh Hpa) 0 gm TOP ASDIRECTED PRN PRN Reason: Sore Nipples Last Admin: 12/15/18 20:01 Dose: 7 gm Lactated Ringer's (Ringers, Lactated) 1,000 mls @ 500 mls/hr IV BOLUS [facility] Last Admin: 12/14/18 07:16 Dose: 500 mls/hr Oxytocin/Sodium Chloride (Oxytocin 30 Unit/500 Ml-Ns) 30 unit in 500 mls @ 250 mls/hr IV TITRATE [facility] Lactated Ringer's (Ringers, Lactated) 1,000 mls @ 125 mls/hr IV ASDIRECTED [facility] Last Admin: 12/14/18 17:58 Dose: 125 mls/hr Ibuprofen (Motrin) 800 mg PO Q8H PRN PRN Reason: mild pain or fever Last Admin: 12/16/18 00:27 Dose: 800 mg Ondansetron HCl (Zofran) 4 mg IVPUSH Q4H PRN PRN Reason: Nausea/Vomiting Last Admin: 12/14/18 20:51 Dose: 4 mg Oxycodone/Acetaminophen (Percocet 325-5 Mg) 1 tab PO ONETIME PRN PRN Reason: Pain (moderate 4-6) Oxycodone/Acetaminophen (Percocet 325-5 Mg) 1 tab PO Q4H PRN PRN Reason: Pain (moderate 4-6) Last Admin: 12/16/18 05:53 Dose: 1 tab Oxycodone/Acetaminophen (Percocet 325-5 Mg) 2 tab PO Q4H PRN PRN Reason: Pain (moderate 4-6) Last Admin: 12/15/18 20:37 Dose: 2 tab Simethicone (Simethicone) 160 mg PO QID [facility] Last Admin: 12/16/18 05:56 Dose: 160 mg Sodium Chloride (Saline Flush) 10 ml FLUSH ASDIRECTED PRN PRN Reason: Keep Vein Open Sodium Chloride (Saline Flush) 2.5 ml FLUSH ASDIRECTED PRN PRN Reason: Keep Vein Open Sodium Chloride (Normal Saline) 10 ml IV ASDIRECTED PRN PRN Reason: IV Use Discontinued Medications Citric Acid/Sodium Citrate (Bicitra Solution) 30 ml PO ONETIME ONE Stop: 12/14/18 05:32 Last Admin: 12/14/18 07:40 Dose: 30 ml Dexamethasone (Dexamethasone) Confirm Administered Dose 20 mg .ROUTE .STK-MED ONE Stop: 12/14/18 08:38 Diphenhydramine HCl (Benadryl) Confirm Administered Dose 50 mg .ROUTE .STK-MED ONE Stop: 12/14/18 08:38 Fentanyl (Sublimaze) 50 mcg IVPUSH Q5M PRN PRN Reason: Pain (severe 7-10) Stop: 12/15/18 07:48 Cefazolin Sodium/Dextrose 2 gm (/ Premix) 50 mls @ 100 mls/hr IV ONETIME ONE Stop: 12/14/18 07:59 Last Admin: 12/14/18 12:25 Dose: Not Given Cefazolin Sodium/Dextrose 1 gm (/ Premix) 50 mls @ 100 mls/hr IV Q8H [facility] Stop: 12/15/18 08:29 Last Admin: 12/15/18 08:06 Dose: 100 mls/hr Ketorolac Tromethamine (Toradol) 30 mg IVPUSH Q6H [facility] Stop: 12/15/18 09:01 Last Admin: 12/15/18 08:46 Dose: 30 mg Morphine Sulfate (Duramorph Pf) Confirm Administered Dose 10 mg .ROUTE .STK-MED ONE Stop: 12/14/18 07:33 Nalbuphine HCl (Nubain) 2.5 mg IVPUSH Q3H PRN PRN Reason: Pruritis Stop: 12/15/18 07:48 Last Admin: 12/14/18 10:32 Dose: 2.5 mg Octyl Cyanoacrylate (Dermabond Advance) Confirm Administered Dose 1 applic .ROUTE .STK-MED ONE Stop: 12/14/18 07:44 Last Admin: 12/14/18 12:25 Dose: Not Given Ondansetron HCl (Zofran) Confirm Administered Dose 4 mg .ROUTE .STK-MED ONE Stop: 12/14/18 07:33 Oxytocin (Pitocin) Confirm Administered Dose 30 unit .ROUTE .STK-MED ONE Stop: 12/14/18 07:41 Phenylephrine HCl (Ja-Synephrine) Confirm Administered Dose 20 mg .ROUTE .STK- MED ONE Stop: 12/14/18 08:38 - Infant Interaction Support Person: Mother - Recovery Exam Fundal Tone: Firm Fundal Level: 1 Fingerbreadths Below Umbilicus Fundal Placement: Midline Lochia Amount: Scant Lochia Color: Rubra/Red Perineum Description: Intact, Minimal Bruising/Swelling Episiotomy/Laceration: None Bladder Status: Voiding Urinary Elimination: Voided - Exam General: Alert, Oriented Lungs: Normal Respiratory Effort Cardiovascular: Regular Rate, Regular Rhythm GI/Abdominal Exam: Normal Bowel Sounds, Soft Skin: Warm, Dry, Intact Wound/Incisions: Healing Well, No Drainage. No: Erythema Neurological: No New Focal Deficit Psy/Mental Status: Alert, Normal Affect, Normal Mood - Problem List & Annotations (1) Delivery by section SNOMED Code(s): 765846925 Code(s): [id number] - Status: Acute Current Visit: Yes - Problem List Review Problem List Initiated/Reviewed/Updated: Yes - My Orders Last 24 Hours: My Active Orders 12/16/18 07:00 Blood Glucose Check, Bedside [RC] ONETIME - Assessment Assessment:: POD 2 status post repeat LTCS - Plan Plan:: Patient is doing well overall. Would like to go home today. Discharge to home. Discharge instructions reviewed. Follow up at [facility] 2 and 6 weeks. She is to continue her oral keflex regimen. Plan 75 gm GTT at PP visit
[2018-12-17] MEDS: Ibuprofen 800 MG Tab PO PRN (05:21)
[2018-12-17] MEDS: Acetaminophen/oxyCODONE 325-5 MG Tab PO PRN ×2 (05:22→10:03)
[2018-12-17] MEDS: Simethicone 80 MG Tab.Chew PO SCH ×4 (05:55→11:59)
[2018-12-17] MEDS: Docusate Sodium 100 MG Cap PO SCH (08:31)
== END 2018-12-17 12:40 | disposition home or self-care (01) | DRG 788 ==
LOC: MW.OB 05:20
PROVIDERS: ADMIT Obstetrics & Gynecology; ATTEND Obstetrics & Gynecology
PROC: 10D00Z1 Extraction of Products of Conception, Low, Open Approach (ICD-10-PCS; principal; 2018-12-14)
DX: O34.211 Maternal care for low transverse scar from previous cesarean delivery (principal); O99.214 Obesity complicating childbirth; E66.9 Obesity, unspecified; Z37.0 Single live birth; Z3A.39 39 weeks gestation of pregnancy
CPT/HCPCS: 01961; 36415; 59025; 82803; 82962; 85027; 86850; 86900; 86901; A9270-GY; J0690; J1100; J1200; J1885; J2270; J2300; J2370; J2405; J2590; J7120

== ENCOUNTER 2020-09-25 05:24 | Inpatient (IN) | payer MEDICAID ==
[2020-09-25] MEDS ORDERED: Citric Acid/Sodium Citrate Solution 30 ML Cup PO ONE (05:34)
[2020-09-25] MEDS ORDERED: Sodium Chloride 0.9% 10 ML Syringe FLUSH PRN (05:34)
[2020-09-25] MEDS ORDERED: Sodium Chloride 0.9% 10 ML SDV IV PRN (05:34)
[2020-09-25] MEDS ORDERED: ceFAZolin 2 GM in Premix Bag 1 BAG IV ONE (05:34)
[2020-09-25] MEDS ORDERED: Sodium Chloride 0.9% 2.5 ML Syringe FLUSH PRN (05:34)
[2020-09-25] MEDS ORDERED: Oxytocin/0.9 % Sodium Chloride 30 UNIT/500 ML BAG IV SCH (05:45)
[2020-09-25] MEDS: Lactated Ringers 1,000 ML IV SCH ×4 (06:10→20:48)
[2020-09-25] MEDS ORDERED: Oxytocin 10 Units/1 ML SDV ONE (07:34)
[2020-09-25] MEDS ORDERED: Ondansetron 4 MG/2 ML SDV ONE (07:34)
[2020-09-25] MEDS ORDERED: Ketorolac 30 MG/ML SDV ONE (07:34)
[2020-09-25] MEDS ORDERED: Morphine PF 10 MG/10 ML SDV ONE (07:35)
[2020-09-25] MEDS ORDERED: fentaNYL 100 MCG/2 ML SDV ONE (07:35)
[2020-09-25] MEDS ORDERED: ceFAZolin 1 GM Vial ONE (07:42)
[2020-09-25] MEDS ORDERED: Sodium Chloride 0.9% 20 ML ONE (07:42)
[2020-09-25] MEDS ORDERED: Bupivacaine 0.5% 30 ML SDV ONE (08:19)
[2020-09-25] MEDS ORDERED: Bupivacaine 0.5% 10 ML SDV ONE (08:19)
[2020-09-25] MEDS ORDERED: diphenhydrAMINE 50 MG/ML SDV IVPUSH PRN (09:02)
[2020-09-25] MEDS ORDERED: Bisacodyl 10 MG Supp RECTAL PRN (09:02)
[2020-09-25] MEDS ORDERED: Lanolin 100% Cream 7 GM Tube TOP PRN (09:02)
[2020-09-25] MEDS ORDERED: Ondansetron 4 MG/2 ML SDV IVPUSH PRN ×3 (09:02→09:16)
[2020-09-25] MEDS ORDERED: Acetaminophen/oxyCODONE 325-5 MG Tab PO PRN ×2 (09:02→09:16)
--- NOTE | 2020-09-25 09:08 | PCM.OPNOTE ---
<Connie Morales - Last Filed: 09/25/20 09:03> - General Post-Op/Procedure Note Date of Surgery/Procedure: 09/25/20 Operative Procedure(s): Repeat Section Findings: live male , cephalic presentation, 3560g, Apgars 9 and 9 placenta intact with 3 vessel cord normal appearing of uterus, ovaries, and fallopian tubes Pre Op Diagnosis: 25yo 39w0d gestation. repeat x2 Post-Op Diagnosis: Same Anesthesia Technique: Regional Block, Spinal Primary Surgeon: Megha Kinney Anesthesia Provider: Ralph Patterson Lobby Porter: Connie Morales Pathology: cord blood and placenta Fluid Replacement, Intraop: 1,500 Output, Urine Amount: 150 EBL in mLs: 800 Complications: None Condition: Good Free Text/Narrative:: 2g ancef IV prophylaxis <Megha Kinney - Last Filed: 09/25/20 09:15> - General Post-Op/Procedure Note Free Text/Narrative:: Intake & Output 09/24/20 09/25/20 09/25/20 22:59 06:59 14:59 Intake Total 1500 Output Total 150 Balance 1350 I have reviewed and agree with the above. Please see dictation #[id number]
[2020-09-25] MEDS ORDERED: HYDROmorphone 2 MG/ML Syringe IVPUSH PRN (09:16)
[2020-09-25] MEDS ORDERED: ePHEDrine 50 MG/ML SDV IVPUSH PRN (09:16)
[2020-09-25] MEDS ORDERED: fentaNYL 100 MCG/2 ML SDV IVPUSH PRN ×2 (09:16)
[2020-09-25] MEDS ORDERED: Nalbuphine 10 MG/1 ML Vial IVPUSH PRN (09:16)
[2020-09-25] MEDS ORDERED: Metoclopramide 10 MG/2 ML SDV IVPUSH PRN (09:16)
[2020-09-25] MEDS ORDERED: Naloxone 0.4 MG/ML Syringe IVPUSH PRN ×2 (09:16)
[2020-09-25] MEDS ORDERED: Albuterol 0.083% 2.5 MG/3 ML Neb Soln NEB PRN (09:16)
[2020-09-25] MEDS ORDERED: Morphine 2 MG/ML SYRINGE IVPUSH PRN (09:16)
--- NOTE | 2020-09-25 09:16 | PCM.PREANE ---
Preanesthetic Assessment - Anesthesia/Transfusion/Family Hx Anesthesia History: Prior Anesthesia Without Reaction Family History of Anesthesia Reaction: No Transfusion History: No Prior Transfusion(s) - Review of Systems General: No Symptoms Pulmonary: No Symptoms Cardiovascular: No Symptoms Gastrointestinal: No Symptoms Neurological: No Symptoms Other: Reports: None - Physical Assessment NPO Status Date: 09/25/20 NPO Status Time: 00:00 Height: 5 ft 3 in Weight: 247 lb ASA Class: 2 Mental Status: Alert & Oriented x3 Airway Class: Mallampati = 3 Dentition: Reports: Normal Dentition ROM/Head Extension: Full Lungs: Clear to Auscultation, Normal Respiratory Effort Cardiovascular: Regular Rate, Regular Rhythm - Lab Values: Laboratory Last Values WBC 11.11 K/uL (4.0-11.0) H 09/25/20 06:08 RBC 4.22 M/uL (4.30-5.90) L 09/25/20 06:08 Hgb 10.2 g/dL (12.0-16.0) L 09/25/20 06:08 Hct 30.9 % (36.0-46.0) L 09/25/20 06:08 MCV 73.2 fL (80.0-98.0) L 09/25/20 06:08 MCH 24.2 pg (27.0-32.0) L 09/25/20 06:08 MCHC 33.0 g/dL (31.0-37.0) 09/25/20 06:08 RDW Std Deviation 40.1 fl (28.0-62.0) 09/25/20 06:08 RDW Coeff of Blue 15 % (11.0-15.0) 09/25/20 06:08 Plt Count 297 K/uL (150-400) 09/25/20 06:08 MPV 9.40 fL (7.40-12.00) 09/25/20 06:08 Nucleated RBC % 0.0 /100WBC 09/25/20 06:08 Nucleated RBCs # 0 K/uL 09/25/20 06:08 Blood Type A POSITIVE 09/25/20 06:08 Antibody Screen NEGATIVE 09/25/20 06:08 - Allergies Allergies/Adverse Reactions: Allergies Allergy/AdvReac Type Severity Reaction Status Date / Time No Known Allergies Allergy Verified 09/25/20 05:33 - Blood Blood Available: Yes Product(s) Available: PRBC - Anesthesia Plan Pre-Op Medication Ordered: None - Acknowledgements Anesthesia Type Planned: Spinal Pt an Appropriate Candidate for the Planned Anesthesia: Yes Alternatives and Risks of Anesthesia Discussed w Pt/Guardian: Yes Pt/Guardian Understands and Agrees with Anesthesia Plan: Yes PreAnesthesia Questionnaire HEENT History: Reports: None Cardiovascular History: Reports: None Respiratory History: Reports: None Gastrointestinal History: Reports: GERD Other Gastrointestinal History: occasional heartburn with Genitourinary History: Reports: None RELATIONSHIP COUNSELOR History: Reports: , Spontaneous Musculoskeletal History: Reports: None Neurological History: Reports: Migraines, Other (See Below) Other Neuro History: 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 - Past Surgical History Other Neurological Surgeries/Procedures: left temporal craniotomy with evacuation of brain abscess, (staph infection) in May 2018 - SUBSTANCE USE Tobacco Use Status *Q: Never Tobacco User Tobacco Use Within Last Twelve Months: No Second Hand Smoke Exposure: No Recreational Drug Use History: No - HOME MEDS Home Medications: Home Meds Pnv No.95/Ferrous Fum/Folic AC [ Caplet] 1 tab CHEW DAILY 11/19/18 [History] Ondansetron [Zofran] 1 tab PO ASDIRECTED PRN 12/14/18 [History] - CURRENT (IN HOUSE) MEDS Current Meds: Current Medications Bisacodyl (Bisacodyl 10 Mg Supp) 10 mg RECTAL ONETIME PRN PRN Reason: Constipation Diphenhydramine HCl (Diphenhydramine 50 Mg/Ml Sdv) 25 mg IVPUSH Q6H PRN PRN Reason: Itching or Nausea Docusate Sodium (Docusate Sodium 100 Mg Cap) 100 mg PO BID SCHUYLER Emollient Ointment (Lanolin 100% Cream 7 Gm Tube) 0 gm TOP ASDIRECTED PRN PRN Reason: Sore Nipples Oxytocin/Sodium Chloride (Oxytocin 30 Unit/500 Ml-Ns) 30 unit in 500 mls @ 250 mls/hr IV TITRATE [facility] Lactated Ringer's (Ringers, Lactated) 1,000 mls @ 500 mls/hr IV BOLUS [facility] Last Admin: 09/25/20 07:30 Dose: 999 mls/hr Documented by: Lactated Ringer's (Ringers, Lactated) 1,000 mls @ 125 mls/hr IV ASDIRECTED [facility] Ibuprofen (Ibuprofen 800 Mg Tab) 800 mg PO Q8H PRN PRN Reason: mild pain or fever Ketorolac Tromethamine (Ketorolac 30 Mg/Ml Sdv) 30 mg IVPUSH Q6H [facility] Stop: 09/26/20 09:16 Ondansetron HCl (Ondansetron 4 Mg/2 Ml Sdv) 4 mg IVPUSH Q4H PRN PRN Reason: Nausea/Vomiting Oxycodone/Acetaminophen (Acetaminophen/Oxycodone 325-5 Mg Tab) 1 tab PO Q4H PRN PRN Reason: Pain (severe 7-10) Oxycodone/Acetaminophen (Acetaminophen/Oxycodone 325-5 Mg Tab) 2 tab PO Q4H PRN PRN Reason: Pain (severe 7-10) Sodium Chloride (Sodium Chloride 0.9% 10 Ml Syringe) 10 ml FLUSH ASDIRECTED PRN PRN Reason: Keep Vein Open Sodium Chloride (Sodium Chloride 0.9% 2.5 Ml Syringe) 2.5 ml FLUSH ASDIRECTED PRN PRN Reason: Keep Vein Open Sodium Chloride (Sodium Chloride 0.9% 10 Ml Sdv) 10 ml IV ASDIRECTED PRN PRN Reason: IV Use Discontinued Medications Bupivacaine HCl (Bupivacaine 0.5% 10 Ml Sdv) Confirm Administered Dose 10 ml .ROUTE .STK-MED ONE Stop: 09/25/20 08:20 Bupivacaine HCl (Bupivacaine 0.5% 30 Ml Sdv) Confirm Administered Dose 30 ml .ROUTE .STK-MED ONE Stop: 09/25/20 08:20 Cefazolin Sodium (Cefazolin 1 Gm Vial) Confirm Administered Dose 2 gm .ROUTE .STK-MED ONE Stop: 09/25/20 07:43 Citric Acid/Sodium Citrate (Citric Acid/Sodium Citrate Solution 30 Ml Cup) 30 ml PO ONETIME ONE Stop: 09/25/20 05:35 Fentanyl (Fentanyl 100 Mcg/2 Ml Sdv) Confirm Administered Dose 100 mcg .ROUTE .STK-MED ONE Stop: 09/25/20 07:36 Cefazolin Sodium/Dextrose 2 gm (/ Premix) 50 mls @ 100 mls/hr IV ONETIME ONE Stop: 09/25/20 06:03 Sodium Chloride (Normal Saline) Confirm Administered Dose 20 mls @ as directed .ROUTE .STK-MED ONE Stop: 09/25/20 07:43 Ketorolac Tromethamine (Ketorolac 30 Mg/Ml Sdv) Confirm Administered Dose 30 mg .ROUTE .STK-MED ONE Stop: 09/25/20 07:35 Miscellaneous Medication (Phenylephrine Hcl In 0.9% Nacl 1 Mg/10 Ml Syringe) Confirm Administered Dose 1 mg .ROUTE .STK-MED ONE Stop: 09/25/20 07:35 Miscellaneous Medication (Phenylephrine Hcl In 0.9% Nacl 1 Mg/10 Ml Syringe) Confirm Administered Dose 1 mg .ROUTE .STK-MED ONE Stop: 09/25/20 08:29 Morphine Sulfate (Morphine Pf 10 Mg/10 Ml Sdv) Confirm Administered Dose 10 mg .ROUTE .STK-MED ONE Stop: 09/25/20 07:36 Ondansetron HCl (Ondansetron 4 Mg/2 Ml Sdv) Confirm Administered Dose 4 mg .ROUTE .STK-MED ONE Stop: 09/25/20 07:35 Oxytocin (Oxytocin 10 Units/1 Ml Sdv) Confirm Administered Dose 30 unit .ROUTE .STK-MED ONE Stop: 09/25/20 07:35
--- NOTE | 2020-09-25 09:24 | PCM.SN.2 ---
- Free Text/Narrative Note: Anesthesia Start: 856 Anesthesia Stop: 904 Post op Bilateral TAPS block for post-op analgesia in patient s/p Following informed consent and a procedural time out US guided bilateral TAPS block was placed under sterile conditions using 20cc 0.5% Bupivicaine per side. No complications. Patient tolerated procedure well. Shade Nguyen MD 09/25/2020
--- NOTE | 2020-09-25 09:26 | PCM.POSTAN ---
POST ANESTHESIA ASSESSMENT - MENTAL STATUS Mental Status: Alert, Oriented - RESPIRATORY Respiratory Status: Respiratory Rate WNL, Airway Patent, O2 Saturation Stable - CARDIOVASCULAR CV Status: Pulse Rate WNL, Blood Pressure Stable - GASTROINTESTINAL GI Status: No Symptoms - POST OP HYDRATION Hydration Status: Adequate & Stable
--- NOTE | 2020-09-25 09:26 | PCM48HPAN ---
Post Anesthesia Note - EVALUATION WITHIN 48HRS OF ANESTHETIC Vital Signs in Normal Range: Yes Patient Participated in Evaluation: Yes Respiratory Function Stable: Yes Airway Patent: Yes Cardiovascular Function Stable: Yes Hydration Status Stable: Yes Pain Control Satisfactory: Yes Nausea and Vomiting Control Satisfactory: Yes Mental Status Recovered: Yes
[2020-09-25] MEDS: Ketorolac 30 MG/ML SDV IVPUSH SCH ×3 (09:57→22:03)
[2020-09-25] MEDS: diphenhydrAMINE 50 MG/ML SDV IVPUSH PRN ×4 (11:19→22:24)
--- NOTE | 2020-09-25 11:45 | OR ---
SURGEON: Megha Kinney MD DATE OF PROCEDURE: 09/25/2020 PREOPERATIVE DIAGNOSES: 1. A 25-year-old G5, P2-0-2-2 at 39 weeks and 0 days gestation. 2. History of delivery x2. 3. Rh-positive, rubella immune, group B Streptococcus negative. POSTOPERATIVE DIAGNOSES: 1. A 25-year-old G5, P3-0-2-3 at 39 weeks and 0 days gestation. 2. History of delivery x2. 3. Rh-positive, rubella immune, group B Streptococcus negative. PROCEDURE: Repeat delivery. PRIMARY SURGEON: Megha Kinney MD RENTAL SALES ASSOCIATE: Connie Morales. ANESTHESIA: Epidural and TAP block. INTRAVENOUS FLUIDS: 1600 mL LR. ESTIMATED BLOOD LOSS: 800 mL. URINE OUTPUT: 150 mL of clear yellow urine at the end of procedure. ANTIBIOTIC PROPHYLAXIS: 2 g of Ancef. FINDINGS: Live male infant in cephalic presentation. scores 8 and 9 at one and five minutes respectively. Weight 3560 g. Placenta intact with 3-vessel cord. Uterus, ovaries, and fallopian tubes are normal-appearing. PATHOLOGY: Cord blood and placenta. INDICATIONS: A 25-year-old G5, P2-0-2-2 who presented at 39 weeks and 0 days gestation for planned delivery #3. The risks and benefits of the procedure were reviewed prior to surgery. DESCRIPTION OF PROCEDURE: The patient was taken to the operating room where spinal anesthesia was obtained without difficulty. She was placed in the dorsal supine position with leftward tilt. She was prepared and draped in normal sterile fashion. A Pfannenstiel skin incision was made using the previous scar and carried through to the underlying layer of fascia with the Bovie and scalpel. The fascia was incised in the midline and incision extended laterally with curved Duran scissors. The superior aspect of the fascial incision was grasped with Analisa clamps, elevated, and underlying rectus muscles dissected off bluntly with curved Duran scissors. In a similar fashion, the anterior aspect of the fascial incision was grasped with Analisa clamps, elevated, and underlying rectus muscles dissected off bluntly. Peritoneum was identified in the midline by rectus muscles with hemostat. The peritoneum was entered sharply and the incision extended using the Bovie and manual traction ensuring that no bowel or bladder were entrapped. A large Jessee retractor was placed. A bladder flap was created in the usual fashion. A low uterine hysterotomy was created with a scalpel and extended using manual traction. The infant's head was delivered atraumatically followed by the shoulders and remainder of the body. After approximately 30 seconds, the cord was clamped and cut. The infant was handed off to the awaiting nurse and respiratory therapist. Cord blood was obtained. Placenta was delivered intact with 3-vessel cord with uterine massage and gentle traction on the cord. The uterus was cleared of all clots and debris. The hysterotomy was repaired using running lock stitch of 0 Vicryl suture. The second stitch of the same suture was used to obtain hemostasis. The gutters were cleared of all clots. Hysterotomy was inspected and noted to be hemostatic. The Jessee retractor was removed. Bovie was used to obtain hemostasis of bleeding under the rectus muscles. The rectus muscles were reapproximated in the midline with a running stitch of 3-0 Vicryl suture. The fascia was closed with a running stitch of 0 Vicryl suture. The subcutaneous tissue was closed with a running stitch of 3-0 Vicryl suture in 2 layers. The skin was closed with 4-0 Monocryl in a subcuticular fashion. Steri-Strips and a pressure dressing were applied. The patient and tolerated the delivery well. All sponge, lap, and needle counts correct x2. [id number] / MODL /[id number] LOI
[2020-09-25] MEDS: Ondansetron 4 MG/2 ML SDV IVPUSH PRN ×2 (15:03→20:47)
[2020-09-25] MEDS: Docusate Sodium 100 MG Cap PO SCH (20:47)
[2020-09-26] MEDS ORDERED: Calcium Carbonate 500 MG Tab.Chew PO PRN (01:35)
[2020-09-26] MEDS: Ketorolac 30 MG/ML SDV IVPUSH SCH ×2 (04:21→10:05)
[2020-09-26] MEDS: diphenhydrAMINE 50 MG/ML SDV IVPUSH PRN (04:33)
--- NOTE | 2020-09-26 06:06 | PCM.PNPP ---
- General Info Date of Service: 09/26/20 Admission Dx/Problem (Free Text): Patient is doing well. Basurto removed early this morning, has not yet voided. Ambulated in room overnight. Functional Status: Reports: Pain Controlled, Tolerating Diet, Ambulating, Urinating - Review of Systems General: Reports: No Symptoms HEENT: Reports: No Symptoms Pulmonary: Reports: No Symptoms Cardiovascular: Reports: No Symptoms Gastrointestinal: Reports: No Symptoms Genitourinary: Reports: No Symptoms Musculoskeletal: Reports: No Symptoms Skin: Reports: No Symptoms Neurological: Reports: No Symptoms Psychiatric: Reports: No Symptoms - Patient Data Vital Signs - Most Recent: Last Vital Signs Temp 36.6 C 09/26/20 04:20 Pulse 79 09/26/20 05:10 Resp 18 09/26/20 05:10 BP 100/53 L 09/26/20 04:20 Pulse Ox 96 09/26/20 05:10 Weight - Most Recent: 112.037 kg I&O - Last 24 Hours: Intake & Output 09/25/20 09/25/20 09/26/20 14:59 22:59 06:59 Intake Total 1500 Output Total 046 011 6228 Balance 825 -400 -1600 Lab Results - Last 24 Hours: Laboratory Results - last 24 hr 09/25/20 09/25/20 Range/Units 06:08 06:08 WBC 11.11 H (4.0-11.0) K/uL RBC 4.22 L (4.30-5.90) M/uL Hgb 10.2 L (12.0-16.0) g/dL Hct 30.9 L (36.0-46.0) % MCV 73.2 L (80.0-98.0) fL MCH 24.2 L (27.0-32.0) pg MCHC 33.0 (31.0-37.0) g/dL RDW Std Deviation 40.1 (28.0-62.0) fl RDW Coeff of Blue 15 (11.0-15.0) % Plt Count 297 (150-400) K/uL MPV 9.40 (7.40-12.00) fL Nucleated RBC % 0.0 /100WBC Nucleated RBCs # 0 K/uL Blood Type A POSITIVE Antibody Screen NEGATIVE Med Orders - Current: Current Medications Albuterol (Albuterol 0.083% 2.5 Mg/3 Ml Neb Soln) 2.5 mg NEB ONETIME PRN PRN Reason: Wheezing Bisacodyl (Bisacodyl 10 Mg Supp) 10 mg RECTAL ONETIME PRN PRN Reason: Constipation Calcium Carbonate/Glycine (Calcium Carbonate 500 Mg Tab.Chew) 500 mg PO Q4H PRN PRN Reason: Indigestion Last Admin: 09/26/20 01:47 Dose: 500 mg Documented by: Diphenhydramine HCl (Diphenhydramine 50 Mg/Ml Sdv) 12.5 mg IVPUSH Q2H PRN PRN Reason: Itching Last Admin: 09/26/20 04:33 Dose: 12.5 mg Documented by: Docusate Sodium (Docusate Sodium 100 Mg Cap) 100 mg PO BID SCHUYLER Last Admin: 09/25/20 20:47 Dose: 100 mg Documented by: Droperidol (Droperidol 5 Mg/2 Ml Sdv) 0.625 mg IVPUSH ONETIME PRN PRN Reason: Nausea/Vomiting Emollient Ointment (Lanolin 100% Cream 7 Gm Tube) 0 gm TOP ASDIRECTED PRN PRN Reason: Sore Nipples Last Admin: 09/25/20 18:54 Dose: 1 applic Documented by: Ephedrine Sulfate (Ephedrine 50 Mg/Ml Sdv) 10 mg IVPUSH Q5M PRN PRN Reason: Hypotension Fentanyl (Fentanyl 100 Mcg/2 Ml Sdv) 50 mcg IVPUSH Q5M PRN PRN Reason: Pain (mild 1-3) Fentanyl (Fentanyl 100 Mcg/2 Ml Sdv) 50 mcg IVPUSH Q1H PRN PRN Reason: Pain (severe 7-10) Hydromorphone HCl (Hydromorphone 2 Mg/Ml Syringe) 1 mg IVPUSH Q10M PRN PRN Reason: Pain (moderate 4-6) Oxytocin/Sodium Chloride (Oxytocin 30 Unit/500 Ml-Ns) 30 unit in 500 mls @ 250 mls/hr IV TITRATE [facility] Lactated Ringer's (Ringers, Lactated) 1,000 mls @ 500 mls/hr IV BOLUS [facility] Last Admin: 09/25/20 07:30 Dose: 999 mls/hr Documented by: Lactated Ringer's (Ringers, Lactated) 1,000 mls @ 125 mls/hr IV ASDIRECTED [facility] Last Admin: 09/25/20 20:48 Dose: 125 mls/hr Documented by: Ibuprofen (Ibuprofen 800 Mg Tab) 800 mg PO Q8H PRN PRN Reason: mild pain or fever Ketorolac Tromethamine (Ketorolac 30 Mg/Ml Sdv) 30 mg IVPUSH Q6H [facility] Stop: 09/26/20 09:16 Last Admin: 09/26/20 04:21 Dose: 30 mg Documented by: Metoclopramide HCl (Metoclopramide 10 Mg/2 Ml Sdv) 10 mg IVPUSH ONETIME PRN PRN Reason: Nausea/Vomiting Morphine Sulfate (Morphine 2 Mg/Ml Syringe) 2 mg IVPUSH Q10M PRN PRN Reason: Pain (severe 7-10) Nalbuphine HCl (Nalbuphine 10 Mg/1 Ml Vial) 5 mg IVPUSH ASDIRECTED PRN PRN Reason: Itching Last Admin: 09/25/20 09:36 Dose: 5 mg Documented by: Naloxone HCl (Naloxone 0.4 Mg/Ml Syringe) 0.1 mg IVPUSH ASDIRECTED PRN PRN Reason: Respiratory Depression Naloxone HCl (Naloxone 0.4 Mg/Ml Syringe) 0.1 mg IVPUSH ONETIME PRN PRN Reason: Respiratory Depression Stop: 09/26/20 09:17 Ondansetron HCl (Ondansetron 4 Mg/2 Ml Sdv) 4 mg IVPUSH ONETIME PRN PRN Reason: Nausea/Vomiting Ondansetron HCl (Ondansetron 4 Mg/2 Ml Sdv) 4 mg IVPUSH Q6H PRN PRN Reason: Nausea Ondansetron HCl (Ondansetron 4 Mg/2 Ml Sdv) 4 mg IVPUSH Q4H PRN PRN Reason: Nausea/Vomiting Last Admin: 09/25/20 20:47 Dose: 4 mg Documented by: Oxycodone/Acetaminophen (Acetaminophen/Oxycodone 325-5 Mg Tab) 1 tab PO Q4H PRN PRN Reason: Pain (severe 7-10) Oxycodone/Acetaminophen (Acetaminophen/Oxycodone 325-5 Mg Tab) 2 tab PO Q6H PRN PRN Reason: Pain (moderate 4-6) Sodium Chloride (Sodium Chloride 0.9% 10 Ml Syringe) 10 ml FLUSH ASDIRECTED PRN PRN Reason: Keep Vein Open Sodium Chloride (Sodium Chloride 0.9% 2.5 Ml Syringe) 2.5 ml FLUSH ASDIRECTED PRN PRN Reason: Keep Vein Open Sodium Chloride (Sodium Chloride 0.9% 10 Ml Sdv) 10 ml IV ASDIRECTED PRN PRN Reason: IV Use Discontinued Medications Bupivacaine HCl (Bupivacaine 0.5% 10 Ml Sdv) Confirm Administered Dose 10 ml .ROUTE .STK-MED ONE Stop: 09/25/20 08:20 Bupivacaine HCl (Bupivacaine 0.5% 30 Ml Sdv) Confirm Administered Dose 30 ml .ROUTE .STK-MED ONE Stop: 09/25/20 08:20 Cefazolin Sodium (Cefazolin 1 Gm Vial) Confirm Administered Dose 2 gm .ROUTE .STK-MED ONE Stop: 09/25/20 07:43 Citric Acid/Sodium Citrate (Citric Acid/Sodium Citrate Solution 30 Ml Cup) 30 ml PO ONETIME ONE Stop: 09/25/20 05:35 Last Admin: 09/25/20 23:13 Dose: Not Given Documented by: Fentanyl (Fentanyl 100 Mcg/2 Ml Sdv) Confirm Administered Dose 100 mcg .ROUTE .STK-MED ONE Stop: 09/25/20 07:36 Cefazolin Sodium/Dextrose 2 gm (/ Premix) 50 mls @ 100 mls/hr IV ONETIME ONE Stop: 09/25/20 06:03 Last Admin: 09/25/20 23:13 Dose: Not Given Documented by: Sodium Chloride (Normal Saline) Confirm Administered Dose 20 mls @ as directed .ROUTE .STK-MED ONE Stop: 09/25/20 07:43 Ketorolac Tromethamine (Ketorolac 30 Mg/Ml Sdv) Confirm Administered Dose 30 mg .ROUTE .STK-MED ONE Stop: 09/25/20 07:35 Miscellaneous Medication (Phenylephrine Hcl In 0.9% Nacl 1 Mg/10 Ml Syringe) Confirm Administered Dose 1 mg .ROUTE .STK-MED ONE Stop: 09/25/20 07:35 Miscellaneous Medication (Phenylephrine Hcl In 0.9% Nacl 1 Mg/10 Ml Syringe) Confirm Administered Dose 1 mg .ROUTE .STK-MED ONE Stop: 09/25/20 08:29 Morphine Sulfate (Morphine Pf 10 Mg/10 Ml Sdv) Confirm Administered Dose 10 mg .ROUTE .STK-MED ONE Stop: 09/25/20 07:36 Ondansetron HCl (Ondansetron 4 Mg/2 Ml Sdv) Confirm Administered Dose 4 mg .ROUTE .STK-MED ONE Stop: 09/25/20 07:35 Oxytocin (Oxytocin 10 Units/1 Ml Sdv) Confirm Administered Dose 30 unit .ROUTE .STK-MED ONE Stop: 09/25/20 07:35 - Interaction Disposition, : in Room with Family Interaction: Holding Infant Feeding: Breastfed Infant; Nursed Well Support Person: Significant Other - Recovery Exam Fundal Tone: Firm Fundal Level: 2 Fingerbreadths Below Umbilicus Fundal Placement: Midline Lochia Amount: Scant, Clots/Tissue Present Bladder Status: Nonpalpable - Exam General: Alert, Oriented Neck: Supple Lungs: Normal Respiratory Effort GI/Abdominal Exam: Soft, Non-Tender, No Distention Extremities: Non-Tender Skin: Warm, Dry, Intact Wound/Incisions: Dressing Dry and Intact Neurological: No New Focal Deficit Psy/Mental Status: Alert, Normal Affect, Normal Mood - Problem List & Annotations (1) Delivery by section SNOMED Code(s): 385323857 Code(s): DXT4660 - Status: Acute Current Visit: No - Problem List Review Problem List Initiated/Reviewed/Updated: Yes - My Orders Last 24 Hours: My Active Orders 09/25/20 07:39 Isolation [COMM] Routine 09/25/20 09:02 Patient Status [ADT] Routine Antiembolic Devices [RC] PER UNIT ROUTINE Communication Order [RC] PER UNIT ROUTINE Communication Order [RC] Per Unit Routine Intake and Output [RC] Q8H May Shower [RC] ASDIRECTED Notify Provider Intake and Out [RC] ASDIRECTED RT Incentive Spirometry [RC] Q2HWA Acetaminophen/oxyCODONE [Percocet 325-5 MG] 1 tab PO Q4H PRN Ibuprofen [Motrin] 800 mg PO Q8H PRN Lanolin [Lansinoh HPA] See Dose Instructions TOP ASDIRECTED PRN bisacodyL [Dulcolax] 10 mg RECTAL ONETIME PRN Abdominal Binder [OM.PC] Routine Assess Lochia [WOMSER] Per Unit Routine Assess Uterine Involution [WOMSER] Per Unit Routine Breast Pump [WOMSER] Per Unit Routine DVT/VTE Prophylaxis Reflex [OM.PC] Routine Heat Therapy [OM.PC] Routine Ice Therapy [OM.PC] Routine Peripheral IV Discontinue [OM.PC] Routine Sequential Compression Device [OM.PC] Per Unit Routine 09/25/20 09:15 Ketorolac [Toradol] 30 mg IVPUSH Q6H Lactated Ringers [Ringers, Lactated] 1,000 ml IV ASDIRECTED 09/25/20 Lunch Regular Diet [DIET] 09/25/20 11:27 Ondansetron [Zofran] 4 mg IVPUSH Q4H PRN 09/25/20 21:00 Docusate Sodium [Colace] 100 mg PO BID 09/26/20 01:35 Calcium Carbonate [Tums] 500 mg PO Q4H PRN 09/26/20 05:11 HEMOGLOBIN/HEMATOCRIT,HH [HEME] Routine - Assessment Assessment:: 25yo s/p #3 at 39w0d, POD#1 - Plan Plan:: Continue routine care. Encourage ambulation today. Straight cath if has not voided by 4 hours after catheter removal. Plan to discharge home tomorrow. H&H pending today.
[2020-09-26] MEDS: Docusate Sodium 100 MG Cap PO SCH ×2 (10:05→23:21)
[2020-09-26] MEDS: Acetaminophen/oxyCODONE 325-5 MG Tab PO PRN ×2 (16:45→23:22)
[2020-09-26] MEDS: Ibuprofen 800 MG Tab PO PRN (16:45)
[2020-09-27] MEDS: Ibuprofen 800 MG Tab PO PRN (04:30)
[2020-09-27] MEDS: Docusate Sodium 100 MG Cap PO SCH (08:08)
--- NOTE | 2020-09-27 08:23 | PCM.PNPP ---
<JustinConnie cee - Last Filed: 09/27/20 08:28> - General Info Date of Service: 09/27/20 Admission Dx/Problem (Free Text): Scheduled section, POD#2 Subjective Update: Patient is doing well today. Pain controlled on current pain regimen. She has been ambulating well and tolerating diet. No fever/chills/cp/sob. She feels ready to discharge today. Functional Status: Reports: Pain Controlled - Review of Systems General: Reports: No Symptoms Pulmonary: Reports: No Symptoms Cardiovascular: Reports: No Symptoms Gastrointestinal: Reports: No Symptoms Genitourinary: Reports: No Symptoms Musculoskeletal: Reports: No Symptoms - General Info Date of Service: 09/27/20 - Patient Data Vital Signs - Most Recent: Last Vital Signs Temp 97.9 F 09/27/20 08:00 Pulse 68 09/27/20 08:00 Resp 18 09/27/20 08:00 BP 111/69 09/27/20 08:00 Pulse Ox 98 09/27/20 08:00 Weight - Most Recent: 112.037 kg Lab Results - Last 24 Hours: Laboratory Results - last 24 hr 09/25/20 09/27/20 Range/Units 06:08 06:24 Hgb 9.4 L (12.0-16.0) g/dL Hct 28.9 L (36.0-46.0) % RPR Non-Reac (Non-Reac) Med Orders - Current: Current Medications Albuterol (Albuterol 0.083% 2.5 Mg/3 Ml Neb Soln) 2.5 mg NEB ONETIME PRN PRN Reason: Wheezing Bisacodyl (Bisacodyl 10 Mg Supp) 10 mg RECTAL ONETIME PRN PRN Reason: Constipation Calcium Carbonate/Glycine (Calcium Carbonate 500 Mg Tab.Chew) 500 mg PO Q4H PRN PRN Reason: Indigestion Last Admin: 09/26/20 01:47 Dose: 500 mg Documented by: Diphenhydramine HCl (Diphenhydramine 50 Mg/Ml Sdv) 12.5 mg IVPUSH Q2H PRN PRN Reason: Itching Last Admin: 09/26/20 04:33 Dose: 12.5 mg Documented by: Docusate Sodium (Docusate Sodium 100 Mg Cap) 100 mg PO BID [facility] Last Admin: 09/27/20 08:08 Dose: 100 mg Documented by: Droperidol (Droperidol 5 Mg/2 Ml Sdv) 0.625 mg IVPUSH ONETIME PRN PRN Reason: Nausea/Vomiting Emollient Ointment (Lanolin 100% Cream 7 Gm Tube) 0 gm TOP ASDIRECTED PRN PRN Reason: Sore Nipples Last Admin: 09/25/20 18:54 Dose: 1 applic Documented by: Ephedrine Sulfate (Ephedrine 50 Mg/Ml Sdv) 10 mg IVPUSH Q5M PRN PRN Reason: Hypotension Fentanyl (Fentanyl 100 Mcg/2 Ml Sdv) 50 mcg IVPUSH Q5M PRN PRN Reason: Pain (mild 1-3) Fentanyl (Fentanyl 100 Mcg/2 Ml Sdv) 50 mcg IVPUSH Q1H PRN PRN Reason: Pain (severe 7-10) Hydromorphone HCl (Hydromorphone 2 Mg/Ml Syringe) 1 mg IVPUSH Q10M PRN PRN Reason: Pain (moderate 4-6) Oxytocin/Sodium Chloride (Oxytocin 30 Unit/500 Ml-Ns) 30 unit in 500 mls @ 250 mls/hr IV TITRATE [facility] Lactated Ringer's (Ringers, Lactated) 1,000 mls @ 500 mls/hr IV BOLUS [facility] Last Admin: 09/25/20 07:30 Dose: 999 mls/hr Documented by: Lactated Ringer's (Ringers, Lactated) 1,000 mls @ 125 mls/hr IV ASDIRECTED [facility] Last Admin: 09/25/20 20:48 Dose: 125 mls/hr Documented by: Ibuprofen (Ibuprofen 800 Mg Tab) 800 mg PO Q8H PRN PRN Reason: mild pain or fever Last Admin: 09/27/20 04:30 Dose: 800 mg Documented by: Metoclopramide HCl (Metoclopramide 10 Mg/2 Ml Sdv) 10 mg IVPUSH ONETIME PRN PRN Reason: Nausea/Vomiting Morphine Sulfate (Morphine 2 Mg/Ml Syringe) 2 mg IVPUSH Q10M PRN PRN Reason: Pain (severe 7-10) Nalbuphine HCl (Nalbuphine 10 Mg/1 Ml Vial) 5 mg IVPUSH ASDIRECTED PRN PRN Reason: Itching Last Admin: 09/25/20 09:36 Dose: 5 mg Documented by: Naloxone HCl (Naloxone 0.4 Mg/Ml Syringe) 0.1 mg IVPUSH ASDIRECTED PRN PRN Reason: Respiratory Depression Ondansetron HCl (Ondansetron 4 Mg/2 Ml Sdv) 4 mg IVPUSH ONETIME PRN PRN Reason: Nausea/Vomiting Ondansetron HCl (Ondansetron 4 Mg/2 Ml Sdv) 4 mg IVPUSH Q6H PRN PRN Reason: Nausea Ondansetron HCl (Ondansetron 4 Mg/2 Ml Sdv) 4 mg IVPUSH Q4H PRN PRN Reason: Nausea/Vomiting Last Admin: 09/25/20 20:47 Dose: 4 mg Documented by: Oxycodone/Acetaminophen (Acetaminophen/Oxycodone 325-5 Mg Tab) 1 tab PO Q4H PRN PRN Reason: Pain (severe 7-10) Last Admin: 09/26/20 23:22 Dose: 1 tab Documented by: Oxycodone/Acetaminophen (Acetaminophen/Oxycodone 325-5 Mg Tab) 2 tab PO Q6H PRN PRN Reason: Pain (moderate 4-6) Last Admin: 09/27/20 08:08 Dose: 2 tab Documented by: Sodium Chloride (Sodium Chloride 0.9% 10 Ml Syringe) 10 ml FLUSH ASDIRECTED PRN PRN Reason: Keep Vein Open Sodium Chloride (Sodium Chloride 0.9% 2.5 Ml Syringe) 2.5 ml FLUSH ASDIRECTED PRN PRN Reason: Keep Vein Open Sodium Chloride (Sodium Chloride 0.9% 10 Ml Sdv) 10 ml IV ASDIRECTED PRN PRN Reason: IV Use Discontinued Medications Bupivacaine HCl (Bupivacaine 0.5% 10 Ml Sdv) Confirm Administered Dose 10 ml .RO KARLIE .STK-MED ONE Stop: 09/25/20 08:20 Bupivacaine HCl (Bupivacaine 0.5% 30 Ml Sdv) Confirm Administered Dose 30 ml .ROUTE .STK-MED ONE Stop: 09/25/20 08:20 Cefazolin Sodium (Cefazolin 1 Gm Vial) Confirm Administered Dose 2 gm .ROUTE .STK-MED ONE Stop: 09/25/20 07:43 Citric Acid/Sodium Citrate (Citric Acid/Sodium Citrate Solution 30 Ml Cup) 30 ml PO ONETIME ONE Stop: 09/25/20 05:35 Last Admin: 09/25/20 23:13 Dose: Not Given Documented by: Fentanyl (Fentanyl 100 Mcg/2 Ml Sdv) Confirm Administered Dose 100 mcg .ROUTE .STK-MED ONE Stop: 09/25/20 07:36 Cefazolin Sodium/Dextrose 2 gm (/ Premix) 50 mls @ 100 mls/hr IV ONETIME ONE Stop: 09/25/20 06:03 Last Admin: 09/25/20 23:13 Dose: Not Given Documented by: Sodium Chloride (Normal Saline) Confirm Administered Dose 20 mls @ as directed .ROUTE .STK-MED ONE Stop: 09/25/20 07:43 Ketorolac Tromethamine (Ketorolac 30 Mg/Ml Sdv) Confirm Administered Dose 30 mg .ROUTE .STK-MED ONE Stop: 09/25/20 07:35 Ketorolac Tromethamine (Ketorolac 30 Mg/Ml Sdv) 30 mg IVPUSH Q6H [facility] Stop: 09/26/20 09:16 Last Admin: 09/26/20 10:05 Dose: 30 mg Documented by: Miscellaneous Medication (Phenylephrine Hcl In 0.9% Nacl 1 Mg/10 Ml Syringe) Confirm Administered Dose 1 mg .ROUTE .STK-MED ONE Stop: 09/25/20 07:35 Miscellaneous Medication (Phenylephrine Hcl In 0.9% Nacl 1 Mg/10 Ml Syringe) Confirm Administered Dose 1 mg .ROUTE .STK-MED ONE Stop: 09/25/20 08:29 Morphine Sulfate (Morphine Pf 10 Mg/10 Ml Sdv) Confirm Administered Dose 10 mg .ROUTE .STK-MED ONE Stop: 09/25/20 07:36 Naloxone HCl (Naloxone 0.4 Mg/Ml Syringe) 0.1 mg IVPUSH ONETIME PRN PRN Reason: Respiratory Depression Stop: 09/26/20 09:17 Ondansetron HCl (Ondansetron 4 Mg/2 Ml Sdv) Confirm Administered Dose 4 mg .ROUTE .STK-MED ONE Stop: 09/25/20 07:35 Oxytocin (Oxytocin 10 Units/1 Ml Sdv) Confirm Administered Dose 30 unit .ROUTE .STK-MED ONE Stop: 09/25/20 07:35 - Interaction Infant Disposition, : in Room with Family Infant Interaction: Holding Feeding: Breastfed Infant; Nursed Well Support Person: Significant Other - Recovery Exam Fundal Tone: Firm Fundal Level: 2 Fingerbreadths Below Umbilicus Fundal Placement: Midline Lochia Amount: Scant Lochia Color: Rubra/Red Perineum Description: Intact, Minimal Bruising/Swelling Episiotomy/Laceration: None Bladder Status: Nonpalpable Urinary Elimination: Indwelling Catheter, Other (see below) Other Urinary Elimination, : urinating independently - Exam General: Alert, Oriented Skin: Warm, Dry, Intact Wound/Incisions: Healing Well - Problem List & Annotations (1) Delivery by section SNOMED Code(s): 478466813 Code(s): [id number] - Status: Acute Current Visit: No - Assessment Assessment:: 25yo s/p #3 at 39w0d, POD#2 - Plan Plan:: Pt recovering well. Continue to control pain. Encouraged use of stool softeners. Plan to discharge today <Megha Kinney - Last Filed: 09/27/20 08:32> - Patient Data Vital Signs - Most Recent: Last Vital Signs Temp 36.6 C 09/27/20 08:00 Pulse 68 09/27/20 08:00 Resp 18 09/27/20 08:00 BP 111/69 09/27/20 08:00 Pulse Ox 98 09/27/20 08:00 Lab Results - Last 24 Hours: Laboratory Results - last 24 hr 09/25/20 09/27/20 Range/Units 06:08 06:24 Hgb 9.4 L (12.0-16.0) g/dL Hct 28.9 L (36.0-46.0) % RPR Non-Reac (Non-Reac) Med Orders - Current: Current Medications Albuterol (Albuterol 0.083% 2.5 Mg/3 Ml Neb Soln) 2.5 mg NEB ONETIME PRN PRN Reason: Wheezing Bisacodyl (Bisacodyl 10 Mg Supp) 10 mg RECTAL ONETIME PRN PRN Reason: Constipation Calcium Carbonate/Glycine (Calcium Carbonate 500 Mg Tab.Chew) 500 mg PO Q4H PRN PRN Reason: Indigestion Last Admin: 09/26/20 01:47 Dose: 500 mg Documented by: Diphenhydramine HCl (Diphenhydramine 50 Mg/Ml Sdv) 12.5 mg IVPUSH Q2H PRN PRN Reason: Itching Last Admin: 09/26/20 04:33 Dose: 12.5 mg Documented by: Docusate Sodium (Docusate Sodium 100 Mg Cap) 100 mg PO BID [facility] Last Admin: 09/27/20 08:08 Dose: 100 mg Documented by: Droperidol (Droperidol 5 Mg/2 Ml Sdv) 0.625 mg IVPUSH ONETIME PRN PRN Reason: Nausea/Vomiting Emollient Ointment (Lanolin 100% Cream 7 Gm Tube) 0 gm TOP ASDIRECTED PRN PRN Reason: Sore Nipples Last Admin: 09/25/20 18:54 Dose: 1 applic Documented by: Ephedrine Sulfate (Ephedrine 50 Mg/Ml Sdv) 10 mg IVPUSH Q5M PRN PRN Reason: Hypotension Fentanyl (Fentanyl 100 Mcg/2 Ml Sdv) 50 mcg IVPUSH Q5M PRN PRN Reason: Pain (mild 1-3) Fentanyl (Fentanyl 100 Mcg/2 Ml Sdv) 50 mcg IVPUSH Q1H PRN PRN Reason: Pain (severe 7-10) Hydromorphone HCl (Hydromorphone 2 Mg/Ml Syringe) 1 mg IVPUSH Q10M PRN PRN Reason: Pain (moderate 4-6) Oxytocin/Sodium Chloride (Oxytocin 30 Unit/500 Ml-Ns) 30 unit in 500 mls @ 250 mls/hr IV TITRATE [facility] Lactated Ringer's (Ringers, Lactated) 1,000 mls @ 500 mls/hr IV BOLUS [facility] Last Admin: 09/25/20 07:30 Dose: 999 mls/hr Documented by: Lactated Ringer's (Ringers, Lactated) 1,000 mls @ 125 mls/hr IV ASDIRECTED [facility] Last Admin: 09/25/20 20:48 Dose: 125 mls/hr Documented by: Ibuprofen (Ibuprofen 800 Mg Tab) 800 mg PO Q8H PRN PRN Reason: mild pain or fever Last Admin: 09/27/20 04:30 Dose: 800 mg Documented by: Metoclopramide HCl (Metoclopramide 10 Mg/2 Ml Sdv) 10 mg IVPUSH ONETIME PRN PRN Reason: Nausea/Vomiting Morphine Sulfate (Morphine 2 Mg/Ml Syringe) 2 mg IVPUSH Q10M PRN PRN Reason: Pain (severe 7-10) Nalbuphine HCl (Nalbuphine 10 Mg/1 Ml Vial) 5 mg IVPUSH ASDIRECTED PRN PRN Reason: Itching Last Admin: 09/25/20 09:36 Dose: 5 mg Documented by: Naloxone HCl (Naloxone 0.4 Mg/Ml Syringe) 0.1 mg IVPUSH ASDIRECTED PRN PRN Reason: Respiratory Depression Ondansetron HCl (Ondansetron 4 Mg/2 Ml Sdv) 4 mg IVPUSH ONETIME PRN PRN Reason: Nausea/Vomiting Ondansetron HCl (Ondansetron 4 Mg/2 Ml Sdv) 4 mg IVPUSH Q6H PRN PRN Reason: Nausea Ondansetron HCl (Ondansetron 4 Mg/2 Ml Sdv) 4 mg IVPUSH Q4H PRN PRN Reason: Nausea/Vomiting Last Admin: 09/25/20 20:47 Dose: 4 mg Documented by: Oxycodone/Acetaminophen (Acetaminophen/Oxycodone 325-5 Mg Tab) 1 tab PO Q4H PRN PRN Reason: Pain (severe 7-10) Last Admin: 09/26/20 23:22 Dose: 1 tab Documented by: Oxycodone/Acetaminophen (Acetaminophen/Oxycodone 325-5 Mg Tab) 2 tab PO Q6H PRN PRN Reason: Pain (moderate 4-6) Last Admin: 09/27/20 08:08 Dose: 2 tab Documented by: Sodium Chloride (Sodium Chloride 0.9% 10 Ml Syringe) 10 ml FLUSH ASDIRECTED PRN PRN Reason: Keep Vein Open Sodium Chloride (Sodium Chloride 0.9% 2.5 Ml Syringe) 2.5 ml FLUSH ASDIRECTED PRN PRN Reason: Keep Vein Open Sodium Chloride (Sodium Chloride 0.9% 10 Ml Sdv) 10 ml IV ASDIRECTED PRN PRN Reason: IV Use Discontinued Medications Bupivacaine HCl (Bupivacaine 0.5% 10 Ml Sdv) Confirm Administered Dose 10 ml .ROUTE .STK-MED ONE Stop: 09/25/20 08:20 Bupivacaine HCl (Bupivacaine 0.5% 30 Ml Sdv) Confirm Administered Dose 30 ml .ROUTE .STK-MED ONE Stop: 09/25/20 08:20 Cefazolin Sodium (Cefazolin 1 Gm Vial) Confirm Administered Dose 2 gm .ROUTE .STK-MED ONE Stop: 09/25/20 07:43 Citric Acid/Sodium Citrate (Citric Acid/Sodium Citrate Solution 30 Ml Cup) 30 ml PO ONETIME ONE Stop: 09/25/20 05:35 Last Admin: 09/25/20 23:13 Dose: Not Given Documented by: Fentanyl (Fentanyl 100 Mcg/2 Ml Sdv) Confirm Administered Dose 100 mcg .ROUTE .STK-MED ONE Stop: 09/25/20 07:36 Cefazolin Sodium/Dextrose 2 gm (/ Premix) 50 mls @ 100 mls/hr IV ONETIME ONE Stop: 09/25/20 06:03 Last Admin: 09/25/20 23:13 Dose: Not Given Documented by: Sodium Chloride (Normal Saline) Confirm Administered Dose 20 mls @ as directed .ROUTE .STK-MED ONE Stop: 09/25/20 07:43 Ketorolac Tromethamine (Ketorolac 30 Mg/Ml Sdv) Confirm Administered Dose 30 mg .ROUTE .STK-MED ONE Stop: 09/25/20 07:35 Ketorolac Tromethamine (Ketorolac 30 Mg/Ml Sdv) 30 mg IVPUSH Q6H [place] Stop: 09/26/20 09:16 Last Admin: 09/26/20 10:05 Dose: 30 mg Documented by: Miscellaneous Medication (Phenylephrine Hcl In 0.9% Nacl 1 Mg/10 Ml Syringe) Confirm Administered Dose 1 mg .ROUTE .STK-MED ONE Stop: 09/25/20 07:35 Miscellaneous Medication (Phenylephrine Hcl In 0.9% Nacl 1 Mg/10 Ml Syringe) Confirm Administered Dose 1 mg .ROUTE .STK-MED ONE Stop: 09/25/20 08:29 Morphine Sulfate (Morphine Pf 10 Mg/10 Ml Sdv) Confirm Administered Dose 10 mg .ROUTE .STK-MED ONE Stop: 09/25/20 07:36 Naloxone HCl (Naloxone 0.4 Mg/Ml Syringe) 0.1 mg IVPUSH ONETIME PRN PRN Reason: Respiratory Depression Stop: 09/26/20 09:17 Ondansetron HCl (Ondansetron 4 Mg/2 Ml Sdv) Confirm Administered Dose 4 mg .ROUTE .STK-MED ONE Stop: 09/25/20 07:35 Oxytocin (Oxytocin 10 Units/1 Ml Sdv) Confirm Administered Dose 30 unit .ROUTE .STK-MED ONE Stop: 09/25/20 07:35 - Recovery Exam Bladder Status: Voiding Urinary Elimination: Voided. No: Indwelling Catheter, Other (see below) - Exam Neck: Supple Lungs: Normal Respiratory Effort GI/Abdominal Exam: Soft, Non-Tender, No Distention Extremities: Non-Tender, No Pedal Edema Neurological: No New Focal Deficit Psy/Mental Status: Alert, Normal Affect, Normal Mood - Problem List & Annotations (1) Delivery by section SNOMED Code(s): 390647348 Code(s): [id number] - Status: Acute Current Visit: No - Problem List Review Problem List Initiated/Reviewed/Updated: Yes - Plan Plan:: Patient desires discharge home today. Reviewed discharge precautions/instructions. All questions answered.
== END 2020-09-27 10:55 | disposition home or self-care (01) | DRG 788 ==
LOC: MW.OB 05:24
PROVIDERS: ADMIT Obstetrics & Gynecology; ATTEND Obstetrics & Gynecology
PROC: 10D00Z1 Extraction of Products of Conception, Low, Open Approach (ICD-10-PCS; principal; 2020-09-25)
DX: O34.211 Maternal care for low transverse scar from previous cesarean delivery (principal); Z37.0 Single live birth; O99.214 Obesity complicating childbirth; O99.62 Diseases of the digestive system complicating childbirth; K21.9 Gastro-esophageal reflux disease without esophagitis; Z3A.39 39 weeks gestation of pregnancy
CPT/HCPCS: 36415; 59025; 85014; 85018; 85027; 86592; 86850; 86900; 86901; A9270-GY; J0690; J1200; J1885; J2270; J2300; J2370; J2405; J2590; J3010; J3490; J7120